=== PATIENT | male | born 1950 | race Caucasian/White ===

== ENCOUNTER 2016-10-04 15:00 | Inpatient (IN) | payer SELFPAY ==
[~2016-10-04] VITALS: Ht 167.6 cm; Wt 69.0 kg
[~2016-10-04 15:00] MED LIST: CYCL10 PO; DSS100 PO; HYDR-309 PO; HYDR50 PO; METO100T5 PO; NIFE90TA38 PO; PANT40TA25 PO
[2016-10-04 16:13] LABS: BASOPHILS % (AUTO) 0.6 % (0.0-2.0); HEMATOCRIT 39.9 % (41-53); HEMOGLOBIN 12.9 g/dL (13.5-17.5); LYMPHOCYTES # (AUTO) 1.7 K/uL (1.0-4.8); LYMPHOCYTES % (AUTO) 22.4 % (22.0-44.0); MEAN CORPUSCULAR HEMOGLOBIN 28.3 pg (26.0-34.0); MEAN CORPUSCULAR HGB CONC 32.4 G/dL (31.0-37.0); MEAN CORPUSCULAR VOLUME 87 fL (80-100); MONOCYTES # (AUTO) 0.8 K/uL (0.1-1.0); MONOCYTES % (AUTO) 10.2 % (2.0-9.0); NEUTROPHILS # (AUTO) 4.8 K/uL (1.8-7.7); NEUTROPHILS % (AUTO) 64.8 % (40.0-70.0); PLATELET COUNT (AUTO) 257 K/uL (150-450); RED BLOOD CELL COUNT(AUTO) 4.57 MIL/uL (4.50-5.90); RED CELL DISTRIBUTION WIDTH 15.9 % (11.5-14.5); WHITE BLOOD COUNT (AUTO) 7.4 K/uL (4.5-11.0)
[2016-10-04 16:21] LABS: INR 1.1 (0.9-1.1); PROTHROMBIN TIME 11.1 SEC (9.4-11.6)
[2016-10-04 16:24] LABS: ANION GAP 8 mmol/L (8-16); CALCIUM, TOTAL 8.4 mg/dL (8.8-10.5); CARBON DIOXIDE 26 mmol/L (22-29); CHLORIDE 106 mmol/L (98-107); CREATININE 1.47 mg/dL (0.60-1.30); GLOMERULAR FILTR. RATE CALC 48 mL/min (>60); POTASSIUM 3.8 mmol/L (3.5-5.1); SODIUM SERUM 140 mmol/L (136-145); UREA NITROGEN, BLOOD 12 mg/dL (7-18)
[2016-10-04 16:34] LABS: ALANINE AMINOTRANSFERASE 13 U/L (12-78); ALBUMIN 3.1 g/dL (3.4-5.0); ASPARTATE AMINOTRANSFERASE 13 U/L (15-37); BILIRUBIN,TOTAL 0.4 mg/dL (0.1-1.0); TOTAL PROTEIN, SERUM 7.4 g/dL (6.4-8.2)
[2016-10-04] MEDS ORDERED: MECLIZINE HCL 25 MG TABLET PO ONE (17:30)
[2016-10-04] MEDS ORDERED: ASPIRIN 81 MG CHEWABLE TABLET PO ONE (17:30)
[2016-10-04] MEDS ORDERED: GADOBUTROL 1 MMOL/ML 10 ML VIAL IVP ONE (17:40)
[2016-10-04 18:08] LABS: ERYTHROCYTE SEDIMENTATION RATE 37 MM/HR (0-15)
[2016-10-04] MEDS ORDERED: NITROGLYCERIN 2% (1 GM=INCH) PACKET TP ONE (18:15)
[2016-10-04] MEDS ORDERED: ONDANSETRON HCL 4 MG/2 ML VIAL IVP ONE (18:15)
[2016-10-04] MEDS: HydrALAZINE HCL 20 MG/ML VIAL IVP ONE ×2 (19:52→20:01)
[2016-10-04 20:51] VITALS: BP 164/72
[2016-10-04] MEDS ORDERED: HYDROCODONE/ACETAMINOPHEN 5-325 MG TABLET PO PRN (23:15)
[2016-10-04 23:50] VITALS: BP 150/80
[2016-10-04 23:54] VITALS: BP 149/80
[2016-10-05] VITALS (7 sets, daily range): BP systolic 100–178; BP diastolic 63–91
[2016-10-05] MEDS ORDERED: HydrALAZINE HCL 50 MG TABLET PO SCH
[2016-10-05] MEDS: DiphenhydrAMINE HCL 25 MG CAPSULE PO PRN (05:46)
[2016-10-05] MEDS ORDERED: 0.9% SODIUM CHLORIDE 10 ML SYRINGE IVP PRN (07:00)
[2016-10-05] MEDS ORDERED: ONDANSETRON HCL 4 MG/2 ML VIAL IVP PRN (07:00)
[2016-10-05] MEDS ORDERED: OxyCODONE HCL/ACETAMINOPHEN 5-325 MG TABLET PO PRN ×2 (07:00)
[2016-10-05] MEDS ORDERED: MAGNESIUM HYDROXIDE SUSPENSION 30 ML UDCUP PO PRN (07:00)
[2016-10-05] MEDS ORDERED: ACETAMINOPHEN 325 MG TABLET PO PRN (07:00)
[2016-10-05] MEDS: AmLODIPine BESYLATE 5 MG TABLET PO SCH (08:21)
[2016-10-05] MEDS: ASPIRIN/DIPYRIDAMOLE ER 25/200 MG ER CAPSULE PO SCH ×2 (08:21→19:48)
[2016-10-05] MEDS: CYCLOBENZAPRINE HCL 10 MG TABLET PO SCH ×2 (08:21→19:48)
[2016-10-05] MEDS: PANTOPRAZOLE SODIUM 40 MG/VIAL IVP SCH (08:23)
[2016-10-05] MEDS: DOCUSATE SODIUM 100 MG CAPSULE PO SCH ×2 (08:23→19:48)
[2016-10-05] MEDS ORDERED: DOCUSATE SODIUM 100 MG CAPSULE PO SCH ×2 (09:00)
[2016-10-05] MEDS ORDERED: PANTOPRAZOLE SODIUM 40 MG DR TABLET PO SCH (09:00)
[2016-10-05] MEDS ORDERED: GADOBUTROL 1 MMOL/ML 10 ML VIAL IVP ONE (10:23)
[2016-10-05] MEDS: NIFEdipine 90 MG ER TABLET PO SCH (10:31)
[2016-10-05] MEDS: METOPROLOL SUCCINATE 50 MG ER TABLET PO SCH (10:40)
[2016-10-05] MEDS ORDERED: NITROGLYCERIN 0.4 MG SUBLINGUAL TABLET #25 SL PRN (11:00)
[2016-10-05] MEDS: ASPIRIN 81 MG CHEWABLE TABLET PO SCH (11:43)
[2016-10-05 12:35] LABS: HEMOGLOBIN A1C 5.8 % (4.5-6.2)
[2016-10-05 12:41] LABS: THYROID STIMULATING HORMONE 1.24 uIU/mL (0.36-3.74)
[2016-10-05] MEDS: NITROGLYCERIN 2% (1 GM=INCH) PACKET TP SCH ×3 (13:37→23:55)
[2016-10-05 18:25] LABS: CHOL/HDL RATIO 4.2 (4.2-7.3)
[2016-10-06 05:22] VITALS: BP 135/74
[2016-10-06] MEDS: NITROGLYCERIN 2% (1 GM=INCH) PACKET TP SCH ×4 (05:43→23:34)
[2016-10-06 08:06] VITALS: BP_SYST 145; BP_DIAS 145; BP_DIAS 79
[2016-10-06 08:06] LABS: EOSINOPHILS # (AUTO) 0.23 K/uL (0.00-0.70); EOSINOPHILS % (AUTO) 2.58 % (1.0-6.0); HEMATOCRIT 41.3 % (41-53); HEMOGLOBIN 13.9 g/dL (13.5-17.5); LYMPHOCYTES # (AUTO) 0.9 K/uL (1.0-4.8); LYMPHOCYTES % (AUTO) 9.9 % (22.0-44.0); MEAN CORPUSCULAR HEMOGLOBIN 28.9 pg (26.0-34.0); MEAN CORPUSCULAR HGB CONC 33.5 G/dL (31.0-37.0); MEAN CORPUSCULAR VOLUME 86 fL (80-100); MONOCYTES # (AUTO) 0.3 K/uL (0.1-1.0); MONOCYTES % (AUTO) 3.2 % (2.0-9.0); NEUTROPHILS # (AUTO) 7.4 K/uL (1.8-7.7); NEUTROPHILS % (AUTO) 84.3 % (40.0-70.0); PLATELET COUNT (AUTO) 262 K/uL (150-450); WHITE BLOOD COUNT (AUTO) 8.7 K/uL (4.5-11.0)
[2016-10-06 08:10] LABS: ALBUMIN 3.1 g/dL (3.4-5.0); BILIRUBIN,TOTAL 0.4 mg/dL (0.1-1.0); CALCIUM, TOTAL 8.7 mg/dL (8.8-10.5); CREATININE 1.87 mg/dL (0.60-1.30); MAGNESIUM 2.1 mg/dL (1.80-2.40); POTASSIUM 4.7 mmol/L (3.5-5.1); TOTAL PROTEIN, SERUM 7.6 g/dL (6.4-8.2)
[2016-10-06] MEDS: DOCUSATE SODIUM 100 MG CAPSULE PO SCH ×3 (09:00→20:49)
[2016-10-06] MEDS: PANTOPRAZOLE SODIUM 40 MG/VIAL IVP SCH (09:10)
[2016-10-06] MEDS: ASPIRIN/DIPYRIDAMOLE ER 25/200 MG ER CAPSULE PO SCH ×2 (09:10→20:49)
[2016-10-06] MEDS: ASPIRIN 81 MG CHEWABLE TABLET PO SCH (09:12)
[2016-10-06] MEDS: NIFEdipine 90 MG ER TABLET PO SCH (09:12)
[2016-10-06] MEDS: AmLODIPine BESYLATE 5 MG TABLET PO SCH (09:12)
[2016-10-06] MEDS: CYCLOBENZAPRINE HCL 10 MG TABLET PO SCH ×2 (09:12→20:49)
[2016-10-06] MEDS: METOPROLOL SUCCINATE 50 MG ER TABLET PO SCH (09:13)
[2016-10-06 11:10] VITALS: BP 136/77
[2016-10-06] MEDS ORDERED: SODIUM CHLORIDE 0.9% 250 ML IV ONE (12:15)
[2016-10-06 16:18] VITALS: BP 132/79
[2016-10-06 19:55] VITALS: BP 124/80
[2016-10-06 23:03] VITALS: BP 137/81
[2016-10-06] MEDS: DiphenhydrAMINE HCL 25 MG CAPSULE PO PRN (23:34)
[2016-10-07 04:33] VITALS: BP 156/84
[2016-10-07] MEDS: NITROGLYCERIN 2% (1 GM=INCH) PACKET TP SCH ×2 (05:44→12:10)
[2016-10-07] MEDS: PANTOPRAZOLE SODIUM 40 MG/VIAL IVP SCH (07:45)
[2016-10-07] MEDS: DOCUSATE SODIUM 100 MG CAPSULE PO SCH (07:45)
[2016-10-07] MEDS: METOPROLOL SUCCINATE 50 MG ER TABLET PO SCH (08:27)
[2016-10-07] MEDS: CYCLOBENZAPRINE HCL 10 MG TABLET PO SCH (08:28)
[2016-10-07 08:32] VITALS: BP 125/93
[2016-10-07] MEDS ORDERED: CLOPIDOGREL BISULFATE 75 MG TABLET PO SCH (09:00)
[2016-10-07] MEDS ORDERED: ASPIRIN 81 MG CHEWABLE TABLET PO SCH (09:00)
[2016-10-07] MEDS: AmLODIPine BESYLATE 5 MG TABLET PO SCH (11:29)
[2016-10-07 11:54] VITALS: BP 133/77
[2016-10-07] MEDS: NIFEdipine 90 MG ER TABLET PO SCH (12:10)
[2016-10-07] MEDS ORDERED: ASPI-556 PO (15:30)
[2016-10-07] MEDS ORDERED: AMLO-511 PO (15:31)
[2016-10-07] MEDS ORDERED: METO-325 PO (15:32)
[2016-10-07] MEDS ORDERED: NTP60T TP (15:33)
[2016-10-07] MEDS ORDERED: CLOP75 PO (15:34)
[2016-10-07 15:54] VITALS: BP 148/86
== END 2016-10-07 16:50 | disposition home or self-care (01) | DRG 65 ==
LOC: EMS 15:02 → 5N 20:23
PROVIDERS: ADMIT Internal Medicine; ATTEND Internal Medicine
DX: I63.9 Cerebral infarction, unspecified (principal); I42.9 Cardiomyopathy, unspecified; E44.0 Moderate protein-calorie malnutrition; I25.110 Atherosclerotic heart disease of native coronary artery with unstable angina pectoris; I69.854 Hemiplegia and hemiparesis following other cerebrovascular disease affecting left non-dominant side; I66.11 Occlusion and stenosis of right anterior cerebral artery; I12.9 Hypertensive chronic kidney disease with stage 1 through stage 4 chronic kidney disease, or unspecified chronic kidney disease; F17.210 Nicotine dependence, cigarettes, uncomplicated; D64.9 Anemia, unspecified; M19.90 Unspecified osteoarthritis, unspecified site; N18.9 Chronic kidney disease, unspecified; E78.00 Pure hypercholesterolemia, unspecified; E78.5 Hyperlipidemia, unspecified; Z88.0 Allergy status to penicillin; Z79.899 Other long term (current) drug therapy; Z98.890 Other specified postprocedural states; Z68.24 Body mass index [BMI] 24.0-24.9, adult
CPT/HCPCS: 70450; 70544; 70549; 70553; 82607; 82746; 83036; 83735; 84443; 85651; 92610; 93005; 93306; 96374; 97112; 97116; 97162; 97166; 97530; 99291; 99406; A9585; C9113; G0480; J0360; J2405; J7050

== ENCOUNTER 2016-11-03 19:00 | Inpatient (IN) | payer SELFPAY ==
[~2016-11-03] VITALS: Ht 165.1 cm; Wt 77.2 kg
[~2016-11-03 19:00] MED LIST changes: +AMLO-511 PO; +ASPI-556 PO; +CLOP75 PO; -HYDR-309 PO; -HYDR50 PO; +METO-325 PO; -METO100T5 PO; +NTP60T TP; -PANT40TA25 PO
[2016-11-03 19:19] LABS: BASOPHILS % (AUTO) 0.5 % (0.0-2.0); EOSINOPHILS % (AUTO) 5.8 % (1.0-6.0); HEMATOCRIT 43.3 % (41-53); HEMOGLOBIN 14.1 g/dL (13.5-17.5); LYMPHOCYTES # (AUTO) 2.3 K/uL (1.0-4.8); LYMPHOCYTES % (AUTO) 21.1 % (22.0-44.0); MEAN CORPUSCULAR HEMOGLOBIN 28.1 pg (26.0-34.0); MEAN CORPUSCULAR HGB CONC 32.5 G/dL (31.0-37.0); MEAN CORPUSCULAR VOLUME 87 fL (80-100); MONOCYTES # (AUTO) 1.2 K/uL (0.1-1.0); MONOCYTES % (AUTO) 11.4 % (2.0-9.0); NEUTROPHILS # (AUTO) 6.5 K/uL (1.8-7.7); NEUTROPHILS % (AUTO) 61.2 % (40.0-70.0); PLATELET COUNT (AUTO) 259 K/uL (150-450); RED CELL DISTRIBUTION WIDTH 15.3 % (11.5-14.5); WHITE BLOOD COUNT (AUTO) 10.7 K/uL (4.5-11.0)
[2016-11-03 19:24] LABS: ANION GAP 7 mmol/L (8-16); CALCIUM, TOTAL 9.2 mg/dL (8.8-10.5); CARBON DIOXIDE 27 mmol/L (22-29); CHLORIDE 106 mmol/L (98-107); CREATININE 1.71 mg/dL (0.60-1.30); GLOMERULAR FILTR. RATE CALC 40 mL/min (>60); POTASSIUM 4.2 mmol/L (3.5-5.1); SODIUM SERUM 140 mmol/L (136-145); UREA NITROGEN, BLOOD 22 mg/dL (7-18)
[2016-11-03 19:30] LABS: ALANINE AMINOTRANSFERASE 14 U/L (12-78); ALBUMIN 3.7 g/dL (3.4-5.0); ASPARTATE AMINOTRANSFERASE 13 U/L (15-37); BILIRUBIN,TOTAL 0.4 mg/dL (0.1-1.0); CREATINE KINASE, TOTAL 54 U/L (39-308); TOTAL PROTEIN, SERUM 8.7 g/dL (6.4-8.2)
[2016-11-03 19:33] LABS: PROTHROMBIN TIME 10.7 SEC (9.4-11.6)
[2016-11-03] MEDS ORDERED: ASPIRIN 81 MG CHEWABLE TABLET PO ONE (20:15)
[2016-11-03] MEDS ORDERED: SODIUM CHLORIDE 0.9% 1,000 ML IV ONE (20:45)
[2016-11-03] MEDS ORDERED: ACETAMINOPHEN 325 MG TABLET PO PRN (21:45)
[2016-11-03] MEDS ORDERED: ONDANSETRON HCL 4 MG/2 ML VIAL IVP PRN (21:45)
[2016-11-03] MEDS ORDERED: OxyCODONE HCL/ACETAMINOPHEN 5-325 MG TABLET PO PRN (21:45)
[2016-11-03] MEDS ORDERED: ZOLPIDEM TARTRATE 10 MG TABLET PO PRN (21:45)
[2016-11-03] MEDS: HEPARIN SODIUM,PORCINE 5,000 UNITS/ML VIAL SQ SCH (23:30)
[2016-11-03 23:48] LABS: APPEARANCE,URINE CLEAR (CLEAR); GLUCOSE, URINE (UA) NEGATIVE (NEGATIVE); KETONES,URINE NEGATIVE (NEGATIVE); LEUKOCYTE ESTERASE ,URINE NEGATIVE (NEGATIVE); OCCULT BLOOD,URINE SMALL (NEGATIVE); PH,URINE 6.5 (5.0-8.0); PROTEIN,URINE NEGATIVE (NEGATIVE)
[2016-11-03 23:49] LABS: ADD UA MICROSCOPIC YES
[2016-11-04 00:59] LABS: SQUAMOUS EPITHELIAL CELL,UR Few /LPF (None Seen); WBC,URINE 0-2 /HPF (0-5)
[2016-11-04] MEDS: HEPARIN SODIUM,PORCINE 5,000 UNITS/ML VIAL SQ SCH ×2 (08:48→16:02)
[2016-11-04] MEDS: PANTOPRAZOLE SODIUM 40 MG DR TABLET PO SCH (08:49)
[2016-11-04] MEDS: DOCUSATE SODIUM 100 MG CAPSULE PO SCH ×4 (09:00→23:23)
[2016-11-04] MEDS ORDERED: METOPROLOL SUCCINATE 50 MG ER TABLET PO SCH (09:00)
[2016-11-04] MEDS: NIFEdipine 90 MG ER TABLET PO SCH (09:20)
[2016-11-04] MEDS: ASPIRIN 81 MG EC TABLET PO SCH (09:20)
[2016-11-04] MEDS: CYCLOBENZAPRINE HCL 10 MG TABLET PO SCH ×2 (09:21→23:22)
[2016-11-04] MEDS: AmLODIPine BESYLATE 5 MG TABLET PO SCH (09:21)
[2016-11-04] MEDS: CLOPIDOGREL BISULFATE 75 MG TABLET PO SCH (09:21)
[2016-11-04 17:15] VITALS: BP 140/77
[2016-11-04 19:38] VITALS: BP 135/72
[2016-11-04 23:42] VITALS: BP 145/87
[2016-11-05] MEDS: HEPARIN SODIUM,PORCINE 5,000 UNITS/ML VIAL SQ SCH ×3 (00:07→16:54)
[2016-11-05 04:46] VITALS: BP 137/88
[2016-11-05 07:49] VITALS: BP 143/93
[2016-11-05] MEDS: DOCUSATE SODIUM 100 MG CAPSULE PO SCH ×2 (09:33→21:00)
[2016-11-05] MEDS: ASPIRIN 81 MG EC TABLET PO SCH (09:33)
[2016-11-05] MEDS: PANTOPRAZOLE SODIUM 40 MG DR TABLET PO SCH (09:33)
[2016-11-05] MEDS: CYCLOBENZAPRINE HCL 10 MG TABLET PO SCH ×2 (09:34→21:00)
[2016-11-05] MEDS: AmLODIPine BESYLATE 5 MG TABLET PO SCH (09:34)
[2016-11-05] MEDS: CLOPIDOGREL BISULFATE 75 MG TABLET PO SCH (09:34)
[2016-11-05] MEDS: NIFEdipine 90 MG ER TABLET PO SCH (09:34)
[2016-11-05] MEDS: METOPROLOL SUCCINATE 25 MG ER TABLET PO SCH (09:34)
[2016-11-05 11:41] VITALS: BP 124/85
[2016-11-05 15:44] VITALS: BP 138/86
[2016-11-05 19:36] VITALS: BP 129/76
[2016-11-05 23:56] VITALS: BP 113/80
[2016-11-06] MEDS: HEPARIN SODIUM,PORCINE 5,000 UNITS/ML VIAL SQ SCH ×2 (00:29→08:15)
[2016-11-06 05:03] VITALS: BP 147/88
[2016-11-06 07:39] VITALS: BP 153/93
[2016-11-06] MEDS: ASPIRIN 81 MG EC TABLET PO SCH (08:16)
[2016-11-06] MEDS: PANTOPRAZOLE SODIUM 40 MG DR TABLET PO SCH (08:16)
[2016-11-06] MEDS: AmLODIPine BESYLATE 5 MG TABLET PO SCH (08:16)
[2016-11-06] MEDS: METOPROLOL SUCCINATE 25 MG ER TABLET PO SCH (08:16)
[2016-11-06] MEDS: NIFEdipine 90 MG ER TABLET PO SCH (08:16)
[2016-11-06] MEDS: DOCUSATE SODIUM 100 MG CAPSULE PO SCH (08:17)
[2016-11-06] MEDS: CLOPIDOGREL BISULFATE 75 MG TABLET PO SCH (08:17)
[2016-11-06] MEDS: CYCLOBENZAPRINE HCL 10 MG TABLET PO SCH (08:17)
[2016-11-06] MEDS ORDERED: METO-323 PO (10:40)
[2016-11-06 11:43] VITALS: BP 123/63
== END 2016-11-06 14:55 | disposition home or self-care (01) | DRG 69 ==
LOC: EMS 19:01 → 5S 11-04 16:13
PROVIDERS: ADMIT Hospitalist; ATTEND Hospitalist
DX: G45.9 Transient cerebral ischemic attack, unspecified (principal); I13.0 Hypertensive heart and chronic kidney disease with heart failure and stage 1 through stage 4 chronic kidney disease, or unspecified chronic kidney disease; I42.9 Cardiomyopathy, unspecified; I50.32 Chronic diastolic (congestive) heart failure; E78.5 Hyperlipidemia, unspecified; R00.1 Bradycardia, unspecified; N18.9 Chronic kidney disease, unspecified; I65.29 Occlusion and stenosis of unspecified carotid artery; F17.210 Nicotine dependence, cigarettes, uncomplicated; E78.00 Pure hypercholesterolemia, unspecified; M19.90 Unspecified osteoarthritis, unspecified site; Z88.0 Allergy status to penicillin; Z79.02 Long term (current) use of antithrombotics/antiplatelets; Z79.82 Long term (current) use of aspirin; Z79.899 Other long term (current) drug therapy; Z86.73 Personal history of transient ischemic attack (TIA), and cerebral infarction without residual deficits
CPT/HCPCS: 70496; 70551; 87081; 93005; 96360; 96361; 97162; 99285; J1644; J2405; J7030

== ENCOUNTER 2017-10-31 07:10 | Emergency (ER) | payer SELFPAY ==
[~2017-10-31] VITALS: Ht 167.6 cm; Wt 81.8 kg
[~2017-10-31 07:10] MED LIST changes: -DSS100 PO; -METO-325 PO; +METO25XL PO
[2017-10-31] MEDS ORDERED: AmLODIPine BESYLATE 5 MG TABLET PO ONE (08:00)
[2017-10-31] MEDS ORDERED: NITROGLYCERIN 2% (1 GM=INCH) PACKET TP ONE (08:00)
[2017-10-31] MEDS ORDERED: KETOROLAC TROMETHAMINE 30 MG/ML VIAL IVP ONE (08:00)
[2017-10-31] MEDS ORDERED: METOPROLOL TARTRATE 5 MG/5 ML VIAL IVP ONE (08:00)
[2017-10-31] MEDS ORDERED: METOPROLOL TARTRATE 50 MG TABLET PO ONE (08:00)
[2017-10-31 09:06] LABS: BASOPHILS % (AUTO) 0.6 % (0.0-2.0); HEMATOCRIT 39.7 % (41-53); HEMOGLOBIN 13.3 g/dL (13.5-17.5); LYMPHOCYTES # (AUTO) 0.9 K/uL (1.0-4.8); LYMPHOCYTES % (AUTO) 6.9 % (22.0-44.0); MEAN CORPUSCULAR HEMOGLOBIN 28.3 pg (26.0-34.0); MEAN CORPUSCULAR HGB CONC 33.5 G/dL (31.0-37.0); MEAN CORPUSCULAR VOLUME 85 fL (80-100); MONOCYTES # (AUTO) 0.9 K/uL (0.1-1.0); MONOCYTES % (AUTO) 6.9 % (2.0-9.0); NEUTROPHILS # (AUTO) 10.9 K/uL (1.8-7.7); NEUTROPHILS % (AUTO) 84.6 % (40.0-70.0); PLATELET COUNT (AUTO) 272 K/uL (150-450); RED BLOOD CELL COUNT(AUTO) 4.71 MIL/uL (4.50-5.90)
[2017-10-31 09:23] LABS: CREATININE 1.24 mg/dL (0.60-1.30); POTASSIUM 4.3 mmol/L (3.5-5.1)
[2017-10-31 09:29] LABS: ALBUMIN 3.4 g/dL (3.4-5.0); BILIRUBIN,TOTAL 0.5 mg/dL (0.1-1.0); C-REACTIVE PROTEIN QUANT 7.54 mg/dL (0.00-0.30)
[2017-10-31] MEDS ORDERED: DEXAMETHASONE SOD PHOS 4 MG/ML 5 ML VIAL IM ONE (10:45)
[2017-10-31] MEDS ORDERED: TraMADol HCL 50 MG TABLET PO ONE (10:45)
[2017-10-31] MEDS ORDERED: DEXAMETHASONE SOD PHOS 4 MG/ML 5 ML VIAL IVP ONE (11:15)
[2017-10-31 11:55] VITALS: BP 159/98
[2017-10-31 13:08] LABS: URIC ACID 6.8 mg/dL (2.6-7.2)
== END 2017-10-31 12:40 | disposition home or self-care (01) ==
LOC: EMS 07:11
DX: M19.021 Primary osteoarthritis, right elbow (principal); M25.462 Effusion, left knee; I10 Essential (primary) hypertension; E78.00 Pure hypercholesterolemia, unspecified; F17.210 Nicotine dependence, cigarettes, uncomplicated; Z88.0 Allergy status to penicillin
CPT/HCPCS: 36415; 73080; 73562; 80053; 84550; 85025; 86140; 96374; 96375; 99285; 99406; J1100; J1885; J3490

== ENCOUNTER 2018-02-05 08:51 | Emergency (ER) | payer SELFPAY ==
[~2018-02-05] VITALS: Ht 167.6 cm; Wt 54.5 kg
[~2018-02-05 08:51] MED LIST changes: -CLOP75 PO; -NIFE90TA38 PO
[2018-02-05] MEDS ORDERED: AmLODIPine BESYLATE 5 MG TABLET PO ONE (10:00)
[2018-02-05] MEDS ORDERED: KETOROLAC TROMETHAMINE 30 MG/ML VIAL IM ONE (10:00)
[2018-02-05] MEDS ORDERED: METOPROLOL SUCCINATE 25 MG ER TABLET PO ONE (10:00)
[2018-02-05] MEDS ORDERED: KETOROLAC TROMETHAMINE 30 MG/ML VIAL IVP ONE (10:45)
[2018-02-05 11:25] LABS: BASOPHILS % (AUTO) 0.6 % (0.0-2.0); HEMATOCRIT 37.8 % (41-53); HEMOGLOBIN 12.8 g/dL (13.5-17.5); LYMPHOCYTES # (AUTO) 1.1 K/uL (1.0-4.8); LYMPHOCYTES % (AUTO) 8.8 % (22.0-44.0); MEAN CORPUSCULAR HEMOGLOBIN 28.9 pg (26.0-34.0); MEAN CORPUSCULAR HGB CONC 33.8 G/dL (31.0-37.0); MEAN CORPUSCULAR VOLUME 85 fL (80-100); MONOCYTES # (AUTO) 1.3 K/uL (0.1-1.0); MONOCYTES % (AUTO) 10.3 % (2.0-9.0); NEUTROPHILS % (AUTO) 79.3 % (40.0-70.0); PLATELET COUNT (AUTO) 292 K/uL (150-450); RED BLOOD CELL COUNT(AUTO) 4.43 MIL/uL (4.50-5.90); RED CELL DISTRIBUTION WIDTH 16.3 % (11.5-14.5)
[2018-02-05 11:30] LABS: CALCIUM, TOTAL 8.5 mg/dL (8.8-10.5); CREATININE 1.69 mg/dL (0.60-1.30); POTASSIUM 4.5 mmol/L (3.5-5.1)
[2018-02-05 11:36] LABS: ALBUMIN 2.9 g/dL (3.4-5.0); BILIRUBIN,TOTAL 0.7 mg/dL (0.1-1.0); C-REACTIVE PROTEIN QUANT 15.93 mg/dL (0.00-0.30); TOTAL PROTEIN, SERUM 8.1 g/dL (6.4-8.2)
[2018-02-05 11:51] VITALS: BP 124/62
== END 2018-02-05 12:46 | disposition home or self-care (01) ==
LOC: EMS 08:53
DX: L03.113 Cellulitis of right upper limb (principal); M25.571 Pain in right ankle and joints of right foot; I10 Essential (primary) hypertension; E78.00 Pure hypercholesterolemia, unspecified; F17.210 Nicotine dependence, cigarettes, uncomplicated; Z88.0 Allergy status to penicillin
CPT/HCPCS: 36415; 73080; 73610; 73630; 80053; 85025; 86140; 96374; 99285; J1885

== ENCOUNTER 2018-05-02 13:39 | Inpatient (IN) | payer SELFPAY ==
[~2018-05-02] VITALS: Ht 165.1 cm; Wt 65.0 kg
[2018-05-02 14:25] LABS: BASOPHILS % (AUTO) 0.9 % (0.0-2.0); EOSINOPHILS % (AUTO) 6.5 % (1.0-6.0); HEMATOCRIT 40.7 % (41-53); HEMOGLOBIN 13.4 g/dL (13.5-17.5); LYMPHOCYTES # (AUTO) 1.5 K/uL (1.0-4.8); LYMPHOCYTES % (AUTO) 18.8 % (22.0-44.0); MEAN CORPUSCULAR HEMOGLOBIN 28.8 pg (26.0-34.0); MEAN CORPUSCULAR HGB CONC 32.9 G/dL (31.0-37.0); MEAN CORPUSCULAR VOLUME 87 fL (80-100); MONOCYTES # (AUTO) 0.8 K/uL (0.1-1.0); MONOCYTES % (AUTO) 9.5 % (2.0-9.0); NEUTROPHILS # (AUTO) 5.2 K/uL (1.8-7.7); NEUTROPHILS % (AUTO) 64.3 % (40.0-70.0); PLATELET COUNT (AUTO) 268 K/uL (150-450); RED BLOOD CELL COUNT(AUTO) 4.67 MIL/uL (4.50-5.90); RED CELL DISTRIBUTION WIDTH 15.4 % (11.5-14.5)
[2018-05-02 14:34] LABS: CALCIUM, TOTAL 8.9 mg/dL (8.8-10.5); CREATININE 1.43 mg/dL (0.60-1.30); POTASSIUM 4.2 mmol/L (3.5-5.1)
[2018-05-02 14:40] LABS: ALBUMIN 3.2 g/dL (3.4-5.0); BILIRUBIN,TOTAL 0.3 mg/dL (0.1-1.0)
[2018-05-02 14:43] LABS: PROTHROMBIN TIME 10.4 SEC (9.4-11.6)
[2018-05-02] MEDS ORDERED: ASPIRIN 81 MG CHEWABLE TABLET PO ONE (16:00)
[2018-05-02] MEDS ORDERED: METOPROLOL TARTRATE 5 MG/5 ML VIAL IVP ONE (16:00)
[2018-05-02] MEDS ORDERED: ASPIRIN 325 MG TABLET PO ONE (16:15)
[2018-05-02] MEDS ORDERED: METOPROLOL SUCCINATE 25 MG ER TABLET PO ONE (17:00)
[2018-05-02] MEDS ORDERED: AmLODIPine BESYLATE 5 MG TABLET PO ONE (17:00)
[2018-05-02 19:03] LABS: APPEARANCE,URINE CLEAR (CLEAR); BILIRUBIN,URINE NEGATIVE (NEGATIVE); GLUCOSE, URINE (UA) NEGATIVE (NEGATIVE); KETONES,URINE NEGATIVE (NEGATIVE); LEUKOCYTE ESTERASE ,URINE NEGATIVE (NEGATIVE); NITRATE,URINE NEGATIVE (NEGATIVE); OCCULT BLOOD,URINE NEGATIVE (NEGATIVE); PH,URINE 6.5 (5.0-8.0); PROTEIN,URINE NEGATIVE (NEGATIVE); UROBILINOGEN,URINE 0.2 mg/dL (<=1.0)
[2018-05-02] MEDS ORDERED: IPRATROPIUM BROMIDE 0.5 MG/2.5 ML NEB SOLUTION NEB PRN (19:30)
[2018-05-02] MEDS ORDERED: POTASSIUM CHLORIDE 20 MEQ ER TABLET PO PRN (19:30)
[2018-05-02] MEDS: METOPROLOL SUCCINATE 25 MG ER TABLET PO SCH (19:30)
[2018-05-02] MEDS ORDERED: MAGNESIUM SULFATE 2 GM/WATER 50 ML IV PRN (19:30)
[2018-05-02] MEDS ORDERED: 0.9% SODIUM CHLORIDE 10 ML SYRINGE IVP PRN (19:30)
[2018-05-02] MEDS ORDERED: OxyCODONE HCL/ACETAMINOPHEN 5-325 MG TABLET PO PRN (19:30)
[2018-05-02] MEDS ORDERED: MAGNESIUM SULFATE 4 GM/WATER 100 ML IV PRN (19:30)
[2018-05-02] MEDS ORDERED: ACETAMINOPHEN 325 MG TABLET PO PRN (19:30)
[2018-05-02] MEDS ORDERED: MAGNESIUM OXIDE 400 MG TABLET PO PRN (19:30)
[2018-05-02] MEDS ORDERED: POTASSIUM CHL 10 MEQ/WATER 50 ML IV PRN (19:30)
[2018-05-02] MEDS ORDERED: ZOLPIDEM TARTRATE 5 MG TABLET PO PRN (19:30)
[2018-05-02] MEDS ORDERED: ONDANSETRON HCL 4 MG/2 ML VIAL IVP PRN (19:30)
[2018-05-02] MEDS: ASPIRIN 81 MG CHEWABLE TABLET PO SCH (19:38)
[2018-05-02] MEDS: IPRATROPIUM BROMIDE 0.5 MG/2.5 ML NEB SOLUTION NEB SCH (20:00)
[2018-05-02] MEDS: ALBUTEROL SULFATE 2.5 MG/0.5 ML NEB SOLUTION NEB SCH (20:00)
[2018-05-02] MEDS ORDERED: HydrALAZINE HCL 20 MG/ML VIAL IVP PRN (20:30)
[2018-05-02 20:47] VITALS: BP 160/69
[2018-05-02] MEDS: PANTOPRAZOLE SODIUM 40 MG/VIAL IVP SCH (21:42)
[2018-05-02] MEDS: DOCUSATE SODIUM 100 MG CAPSULE PO SCH (21:42)
[2018-05-02] MEDS: CYCLOBENZAPRINE HCL 10 MG TABLET PO SCH (23:46)
[2018-05-02] MEDS: NITROGLYCERIN 2% (1 GM=INCH) PACKET TP SCH (23:46)
[2018-05-02] MEDS: HEPARIN SODIUM,PORCINE 5,000 UNITS/ML VIAL SQ SCH (23:47)
[2018-05-02] MEDS: HydrALAZINE HCL 20 MG/ML VIAL IVP SCH (23:48)
[2018-05-03 00:01] VITALS: BP 159/79
[2018-05-03] MEDS: HEPARIN SODIUM,PORCINE 5,000 UNITS/ML VIAL SQ SCH ×3 (00:01→15:29)
[2018-05-03] MEDS: IPRATROPIUM BROMIDE 0.5 MG/2.5 ML NEB SOLUTION NEB SCH ×4 (02:00→20:10)
[2018-05-03] MEDS: ALBUTEROL SULFATE 2.5 MG/0.5 ML NEB SOLUTION NEB SCH ×4 (02:00→20:10)
[2018-05-03 04:22] VITALS: BP 153/85
[2018-05-03] MEDS: HydrALAZINE HCL 20 MG/ML VIAL IVP SCH ×2 (05:06→11:46)
[2018-05-03] MEDS: NITROGLYCERIN 2% (1 GM=INCH) PACKET TP SCH ×3 (05:06→18:20)
[2018-05-03 07:07] VITALS: BP 127/84
[2018-05-03] MEDS: PANTOPRAZOLE SODIUM 40 MG/VIAL IVP SCH (08:16)
[2018-05-03] MEDS: DOCUSATE SODIUM 100 MG CAPSULE PO SCH ×2 (08:16→20:08)
[2018-05-03] MEDS: ASPIRIN 81 MG CHEWABLE TABLET PO SCH (08:16)
[2018-05-03] MEDS: AmLODIPine BESYLATE 5 MG TABLET PO SCH (08:17)
[2018-05-03] MEDS: CYCLOBENZAPRINE HCL 10 MG TABLET PO SCH ×2 (08:17→20:08)
[2018-05-03] MEDS: METOPROLOL SUCCINATE 25 MG ER TABLET PO SCH (08:17)
[2018-05-03 11:36] VITALS: BP 101/65
[2018-05-03] MEDS: ALBUTEROL SULFATE 2.5 MG/0.5 ML NEB SOLUTION NEB PRN (13:43)
[2018-05-03 15:36] VITALS: BP 116/70
[2018-05-03 19:37] VITALS: BP 118/77
[2018-05-04] VITALS (7 sets, daily range): BP systolic 98–127; BP diastolic 58–74
[2018-05-04] MEDS: HEPARIN SODIUM,PORCINE 5,000 UNITS/ML VIAL SQ SCH ×4 (00:13→23:20)
[2018-05-04] MEDS: NITROGLYCERIN 2% (1 GM=INCH) PACKET TP SCH ×5 (00:13→23:20)
[2018-05-04 06:36] LABS: BASOPHILS % (AUTO) 0.2 % (0.0-2.0); HEMATOCRIT 39.1 % (41-53); HEMOGLOBIN 13.1 g/dL (13.5-17.5); LYMPHOCYTES % (AUTO) 13.8 % (22.0-44.0); MEAN CORPUSCULAR HGB CONC 33.6 G/dL (31.0-37.0); MEAN CORPUSCULAR VOLUME 86 fL (80-100); MONOCYTES # (AUTO) 0.3 K/uL (0.1-1.0); MONOCYTES % (AUTO) 4.7 % (2.0-9.0); NEUTROPHILS % (AUTO) 71.3 % (40.0-70.0); PLATELET COUNT (AUTO) 252 K/uL (150-450); RED BLOOD CELL COUNT(AUTO) 4.53 MIL/uL (4.50-5.90); RED CELL DISTRIBUTION WIDTH 15.4 % (11.5-14.5)
[2018-05-04 06:55] LABS: CALCIUM, TOTAL 8.5 mg/dL (8.8-10.5); CREATININE 1.67 mg/dL (0.60-1.30); MAGNESIUM 2.2 mg/dL (1.80-2.40); POTASSIUM 4.3 mmol/L (3.5-5.1)
[2018-05-04] MEDS: IPRATROPIUM BROMIDE 0.5 MG/2.5 ML NEB SOLUTION NEB SCH ×3 (07:45→19:17)
[2018-05-04] MEDS: ALBUTEROL SULFATE 2.5 MG/0.5 ML NEB SOLUTION NEB SCH ×3 (07:45→19:17)
[2018-05-04] MEDS: METOPROLOL SUCCINATE 25 MG ER TABLET PO SCH (08:32)
[2018-05-04] MEDS: ASPIRIN 81 MG CHEWABLE TABLET PO SCH (08:32)
[2018-05-04] MEDS: DOCUSATE SODIUM 100 MG CAPSULE PO SCH ×2 (08:32→20:19)
[2018-05-04] MEDS: CYCLOBENZAPRINE HCL 10 MG TABLET PO SCH ×2 (08:32→20:20)
[2018-05-04] MEDS: AmLODIPine BESYLATE 5 MG TABLET PO SCH (08:32)
[2018-05-04] MEDS: PANTOPRAZOLE SODIUM 40 MG/VIAL IVP SCH (08:32)
[2018-05-04] MEDS: CefTRIAXone SODIUM 1 GM in DEXTROSE 5%-WATER 10 ML IV SCH (11:33)
[2018-05-05 00:04] VITALS: BP 139/75
[2018-05-05] MEDS: IPRATROPIUM BROMIDE 0.5 MG/2.5 ML NEB SOLUTION NEB SCH ×4 (02:05→20:07)
[2018-05-05] MEDS: ALBUTEROL SULFATE 2.5 MG/0.5 ML NEB SOLUTION NEB SCH ×4 (02:05→20:06)
[2018-05-05 05:04] VITALS: BP 98/56
[2018-05-05] MEDS: NITROGLYCERIN 2% (1 GM=INCH) PACKET TP SCH ×3 (05:45→18:00)
[2018-05-05 06:52] LABS: BASOPHILS % (AUTO) 0.1 % (0.0-2.0); EOSINOPHILS % (AUTO) 10.5 % (1.0-6.0); HEMATOCRIT 36.3 % (41-53); LYMPHOCYTES # (AUTO) 0.7 K/uL (1.0-4.8); LYMPHOCYTES % (AUTO) 9.7 % (22.0-44.0); MEAN CORPUSCULAR HEMOGLOBIN 28.9 pg (26.0-34.0); MEAN CORPUSCULAR HGB CONC 33.1 G/dL (31.0-37.0); MEAN CORPUSCULAR VOLUME 87 fL (80-100); MONOCYTES # (AUTO) 0.6 K/uL (0.1-1.0); MONOCYTES % (AUTO) 8.3 % (2.0-9.0); NEUTROPHILS # (AUTO) 5.1 K/uL (1.8-7.7); NEUTROPHILS % (AUTO) 71.4 % (40.0-70.0); PLATELET COUNT (AUTO) 230 K/uL (150-450); RED BLOOD CELL COUNT(AUTO) 4.17 MIL/uL (4.50-5.90); RED CELL DISTRIBUTION WIDTH 15.1 % (11.5-14.5)
[2018-05-05 06:55] LABS: C-REACTIVE PROTEIN QUANT 3.81 mg/dL (0.00-0.30); CALCIUM, TOTAL 8.2 mg/dL (8.8-10.5); CREATININE 1.65 mg/dL (0.60-1.30); MAGNESIUM 1.9 mg/dL (1.80-2.40); POTASSIUM 4.2 mmol/L (3.5-5.1)
[2018-05-05 07:13] VITALS: BP 111/71
[2018-05-05] MEDS: PANTOPRAZOLE SODIUM 40 MG/VIAL IVP SCH (08:14)
[2018-05-05] MEDS: HEPARIN SODIUM,PORCINE 5,000 UNITS/ML VIAL SQ SCH ×2 (08:14→16:58)
[2018-05-05] MEDS: CYCLOBENZAPRINE HCL 10 MG TABLET PO SCH ×2 (08:15→20:52)
[2018-05-05] MEDS: DOCUSATE SODIUM 100 MG CAPSULE PO SCH ×2 (08:15→20:52)
[2018-05-05] MEDS: ASPIRIN 81 MG CHEWABLE TABLET PO SCH (08:15)
[2018-05-05] MEDS: METOPROLOL SUCCINATE 25 MG ER TABLET PO SCH (08:15)
[2018-05-05 08:24] LABS: ERYTHROCYTE SEDIMENTATION RATE 40 MM/HR (0-15)
[2018-05-05] MEDS: CefTRIAXone SODIUM 1 GM in DEXTROSE 5%-WATER 10 ML IV SCH (11:00)
[2018-05-05 11:24] VITALS: BP 133/80
[2018-05-05] MEDS: AmLODIPine BESYLATE 5 MG TABLET PO SCH (11:35)
[2018-05-05 16:27] VITALS: BP 108/70
[2018-05-05 19:43] VITALS: BP 130/68
[2018-05-06] VITALS (7 sets, daily range): BP systolic 107–145; BP diastolic 55–80
[2018-05-06] MEDS: HEPARIN SODIUM,PORCINE 5,000 UNITS/ML VIAL SQ SCH ×3 (00:14→16:26)
[2018-05-06] MEDS: ALBUTEROL SULFATE 2.5 MG/0.5 ML NEB SOLUTION NEB SCH ×4 (01:49→19:49)
[2018-05-06] MEDS: IPRATROPIUM BROMIDE 0.5 MG/2.5 ML NEB SOLUTION NEB SCH ×4 (01:50→19:49)
[2018-05-06] MEDS: NITROGLYCERIN 2% (1 GM=INCH) PACKET TP SCH ×4 (06:00→17:40)
[2018-05-06 06:49] LABS: BASOPHILS % (AUTO) 0.1 % (0.0-2.0); EOSINOPHILS % (AUTO) 12.2 % (1.0-6.0); HEMATOCRIT 37.5 % (41-53); HEMOGLOBIN 12.5 g/dL (13.5-17.5); LYMPHOCYTES # (AUTO) 0.6 K/uL (1.0-4.8); LYMPHOCYTES % (AUTO) 9.5 % (22.0-44.0); MEAN CORPUSCULAR HEMOGLOBIN 28.8 pg (26.0-34.0); MEAN CORPUSCULAR HGB CONC 33.4 G/dL (31.0-37.0); MEAN CORPUSCULAR VOLUME 86 fL (80-100); MONOCYTES # (AUTO) 0.5 K/uL (0.1-1.0); MONOCYTES % (AUTO) 7.3 % (2.0-9.0); NEUTROPHILS # (AUTO) 4.8 K/uL (1.8-7.7); NEUTROPHILS % (AUTO) 70.9 % (40.0-70.0); PLATELET COUNT (AUTO) 230 K/uL (150-450); RED BLOOD CELL COUNT(AUTO) 4.35 MIL/uL (4.50-5.90); RED CELL DISTRIBUTION WIDTH 15.1 % (11.5-14.5)
[2018-05-06 06:57] LABS: CALCIUM, TOTAL 8.4 mg/dL (8.8-10.5); CREATININE 1.48 mg/dL (0.60-1.30); POTASSIUM 4.6 mmol/L (3.5-5.1)
[2018-05-06] MEDS: PANTOPRAZOLE SODIUM 40 MG/VIAL IVP SCH (08:19)
[2018-05-06] MEDS: DOCUSATE SODIUM 100 MG CAPSULE PO SCH ×2 (08:20→20:08)
[2018-05-06] MEDS: AmLODIPine BESYLATE 5 MG TABLET PO SCH (08:20)
[2018-05-06] MEDS: METOPROLOL SUCCINATE 25 MG ER TABLET PO SCH (08:20)
[2018-05-06] MEDS: ASPIRIN 81 MG CHEWABLE TABLET PO SCH (08:21)
[2018-05-06] MEDS: CYCLOBENZAPRINE HCL 10 MG TABLET PO SCH ×2 (09:58→20:09)
[2018-05-06] MEDS: CefTRIAXone SODIUM 1 GM in DEXTROSE 5%-WATER 10 ML IV SCH (11:23)
[2018-05-06] MEDS ORDERED: AMLO-512 PO (12:48)
[2018-05-06] MEDS ORDERED: ATOR20TA86 PO (12:50)
[2018-05-07] MEDS: HEPARIN SODIUM,PORCINE 5,000 UNITS/ML VIAL SQ SCH ×3 (00:40→17:23)
[2018-05-07] MEDS: IPRATROPIUM BROMIDE 0.5 MG/2.5 ML NEB SOLUTION NEB SCH ×4 (02:00→14:21)
[2018-05-07] MEDS: ALBUTEROL SULFATE 2.5 MG/0.5 ML NEB SOLUTION NEB SCH ×4 (02:00→14:21)
[2018-05-07 03:15] VITALS: BP 131/73
[2018-05-07] MEDS: NITROGLYCERIN 2% (1 GM=INCH) PACKET TP SCH ×3 (06:11→12:00)
[2018-05-07 07:33] VITALS: BP 129/73
[2018-05-07 08:40] VITALS: BP 159/81
[2018-05-07] MEDS: DOCUSATE SODIUM 100 MG CAPSULE PO SCH (09:00)
[2018-05-07] MEDS: CYCLOBENZAPRINE HCL 10 MG TABLET PO SCH (09:00)
[2018-05-07] MEDS ORDERED: REGADENOSON 0.4 MG/5 ML PF SYRINGE IVP ONE ×2 (10:07→16:29)
[2018-05-07] MEDS ORDERED: SESTAMIBI TC99M/UD ISOTOPE 1 EA INJ INJ ONE ×2 (10:10→12:10)
[2018-05-07 10:14] VITALS: BP 152/78
[2018-05-07] MEDS: ALBUTEROL SULFATE 2.5 MG/0.5 ML NEB SOLUTION NEB PRN (11:11)
[2018-05-07 11:36] VITALS: BP 148/82
[2018-05-07] MEDS: ASPIRIN 81 MG CHEWABLE TABLET PO SCH (14:35)
[2018-05-07] MEDS: PANTOPRAZOLE SODIUM 40 MG/VIAL IVP SCH (14:35)
[2018-05-07] MEDS: AmLODIPine BESYLATE 5 MG TABLET PO SCH (14:35)
[2018-05-07 15:04] VITALS: BP 140/89
[2018-05-07] MEDS: METOPROLOL SUCCINATE 25 MG ER TABLET PO SCH (17:55)
== END 2018-05-07 18:10 | disposition home or self-care (01) | DRG 313 ==
LOC: EMS 13:41 → 5S 18:42 → 5N 05-05 22:55
PROVIDERS: ADMIT Hospitalist; ATTEND Hospitalist
DX: R07.89 Other chest pain (principal); I25.10 Atherosclerotic heart disease of native coronary artery without angina pectoris; D64.9 Anemia, unspecified; E11.22 Type 2 diabetes mellitus with diabetic chronic kidney disease; E78.00 Pure hypercholesterolemia, unspecified; F17.210 Nicotine dependence, cigarettes, uncomplicated; I12.9 Hypertensive chronic kidney disease with stage 1 through stage 4 chronic kidney disease, or unspecified chronic kidney disease; J44.9 Chronic obstructive pulmonary disease, unspecified; M19.90 Unspecified osteoarthritis, unspecified site; I25.5 Ischemic cardiomyopathy; N18.3 Chronic kidney disease, stage 3 (moderate); Z86.73 Personal history of transient ischemic attack (TIA), and cerebral infarction without residual deficits; Z88.0 Allergy status to penicillin; Z79.899 Other long term (current) drug therapy
CPT/HCPCS: 78452; 83735; 85651; 86140; 93005; 93017; 93306; 94640; 96374; 99285; A9500; C9113; J0360; J0696; J1644; J2785; J3490; J7060

== ENCOUNTER 2018-07-29 09:31 | Emergency (ER) | payer SELFPAY ==
[~2018-07-29] VITALS: Ht 167.6 cm; Wt 72.7 kg
[~2018-07-29 09:31] MED LIST changes: +ATOR20TA86 PO
[2018-07-29 13:10] LABS: BASOPHILS % (AUTO) 0.9 % (0.0-2.0); HEMOGLOBIN 13.2 g/dL (13.5-17.5); LYMPHOCYTES # (AUTO) 1.1 K/uL (1.0-4.8); MEAN CORPUSCULAR HEMOGLOBIN 28.5 pg (26.0-34.0); MEAN CORPUSCULAR HGB CONC 33.8 G/dL (31.0-37.0); MEAN CORPUSCULAR VOLUME 84 fL (80-100); MONOCYTES # (AUTO) 0.7 K/uL (0.1-1.0); MONOCYTES % (AUTO) 6.9 % (2.0-9.0); NEUTROPHILS # (AUTO) 8.6 K/uL (1.8-7.7); NEUTROPHILS % (AUTO) 81.2 % (40.0-70.0); PLATELET COUNT (AUTO) 321 K/uL (150-450); RED BLOOD CELL COUNT(AUTO) 4.63 MIL/uL (4.50-5.90)
[2018-07-29] MEDS: OxyCODONE HCL/ACETAMINOPHEN 5-325 MG TABLET PO ONE (13:12)
[2018-07-29] MEDS: ONDANSETRON HCL 4 MG TABLET PO ONE (13:12)
[2018-07-29 13:20] LABS: CALCIUM, TOTAL 9.1 mg/dL (8.8-10.5); CREATININE 1.48 mg/dL (0.60-1.30); POTASSIUM 4.1 mmol/L (3.5-5.1)
[2018-07-29 13:26] LABS: ALBUMIN 3.3 g/dL (3.4-5.0); BILIRUBIN,TOTAL 0.6 mg/dL (0.1-1.0); C-REACTIVE PROTEIN QUANT 11.01 mg/dL (0.00-0.30); TOTAL PROTEIN, SERUM 8.3 g/dL (6.4-8.2)
[2018-07-29] MEDS: METOPROLOL SUCCINATE 25 MG ER TABLET PO ONE (13:38)
[2018-07-29 13:40] LABS: URIC ACID 8.4 mg/dL (2.6-7.2)
[2018-07-29] MEDS ORDERED: LIDOCAINE/PF 1% 30 ML VIAL ONE (13:59)
[2018-07-29] MEDS: IBUPROFEN 600 MG TABLET PO ONE (14:05)
[2018-07-29] MEDS: AmLODIPine BESYLATE 5 MG TABLET PO ONE (15:39)
[2018-07-29] MEDS: CloNIDine HCL 0.2 MG TABLET PO ONE (17:27)
[2018-07-29 18:28] VITALS: BP 108/61
== END 2018-07-29 18:41 | disposition home or self-care (01) ==
LOC: EMS 09:32
DX: M10.9 Gout, unspecified (principal); I10 Essential (primary) hypertension; E78.00 Pure hypercholesterolemia, unspecified; F17.210 Nicotine dependence, cigarettes, uncomplicated; Z88.0 Allergy status to penicillin; Z79.82 Long term (current) use of aspirin
CPT/HCPCS: 36415; 73610; 80053; 84550; 85025; 86140; 99291; Q0162; J3490

== ENCOUNTER 2018-09-05 11:11 | Inpatient (IN) | payer SELFPAY ==
[~2018-09-05] VITALS: Ht 160 cm; Wt 63.9 kg
[2018-09-05 11:59] LABS: BASOPHILS % (AUTO) 0.5 % (0.0-2.0); HEMATOCRIT 42.1 % (41-53); HEMOGLOBIN 13.7 g/dL (13.5-17.5); LYMPHOCYTES # (AUTO) 0.9 K/uL (1.0-4.8); LYMPHOCYTES % (AUTO) 12.7 % (22.0-44.0); MEAN CORPUSCULAR HEMOGLOBIN 27.7 pg (26.0-34.0); MEAN CORPUSCULAR HGB CONC 32.6 G/dL (31.0-37.0); MEAN CORPUSCULAR VOLUME 85 fL (80-100); MONOCYTES # (AUTO) 0.7 K/uL (0.1-1.0); MONOCYTES % (AUTO) 9.7 % (2.0-9.0); NEUTROPHILS # (AUTO) 5.3 K/uL (1.8-7.7); NEUTROPHILS % (AUTO) 73.1 % (40.0-70.0); PLATELET COUNT (AUTO) 223 K/uL (150-450); RED BLOOD CELL COUNT(AUTO) 4.96 MIL/uL (4.50-5.90); RED CELL DISTRIBUTION WIDTH 16.8 % (11.5-14.5)
[2018-09-05 12:16] LABS: CALCIUM, TOTAL 8.8 mg/dL (8.8-10.5); CREATININE 1.28 mg/dL (0.60-1.30); POTASSIUM 3.9 mmol/L (3.5-5.1)
[2018-09-05 12:21] LABS: ALBUMIN 3.3 g/dL (3.4-5.0); BILIRUBIN,TOTAL 0.4 mg/dL (0.1-1.0); TOTAL PROTEIN, SERUM 7.6 g/dL (6.4-8.2)
[2018-09-05] MEDS ORDERED: ONDANSETRON HCL 4 MG/2 ML VIAL IVP PRN ×2 (13:15→20:15)
[2018-09-05] MEDS ORDERED: ACETAMINOPHEN 325 MG TABLET PO PRN ×2 (13:15→20:15)
[2018-09-05 20:15] VITALS: BP 163/95
[2018-09-05] MEDS ORDERED: ZOLPIDEM TARTRATE 5 MG TABLET PO PRN (20:15)
[2018-09-05] MEDS ORDERED: 0.9% SODIUM CHLORIDE 10 ML SYRINGE IVP PRN (20:15)
[2018-09-05] MEDS: ASPIRIN 81 MG EC TABLET PO SCH (20:15)
[2018-09-05] MEDS ORDERED: ATORVASTATIN CALCIUM 20 MG TABLET PO SCH (21:00)
[2018-09-05] MEDS: CYCLOBENZAPRINE HCL 10 MG TABLET PO SCH (21:43)
[2018-09-05] MEDS: AmLODIPine BESYLATE 5 MG TABLET PO SCH (21:43)
[2018-09-05] MEDS: NITROGLYCERIN 2% (1 GM=INCH) PACKET TP SCH (21:43)
[2018-09-05] MEDS: ENOXAPARIN SODIUM 40 MG/0.4 ML PF SYRINGE SQ SCH (21:43)
[2018-09-05] MEDS: PANTOPRAZOLE SODIUM 40 MG/VIAL IVP SCH (21:43)
[2018-09-06] VITALS (7 sets, daily range): BP systolic 105–164; BP diastolic 62–95
[2018-09-06] MEDS: NITROGLYCERIN 2% (1 GM=INCH) PACKET TP SCH ×4 (02:08→20:51)
[2018-09-06 07:58] LABS: BASOPHILS % (AUTO) 0.5 % (0.0-2.0); CREATININE 1.22 mg/dL (0.60-1.30); EOSINOPHILS % (AUTO) 4.1 % (1.0-6.0); HEMATOCRIT 41.4 % (41-53); HEMOGLOBIN 13.8 g/dL (13.5-17.5); LYMPHOCYTES # (AUTO) 0.8 K/uL (1.0-4.8); LYMPHOCYTES % (AUTO) 12.9 % (22.0-44.0); MAGNESIUM 1.9 mg/dL (1.80-2.40); MEAN CORPUSCULAR HEMOGLOBIN 27.9 pg (26.0-34.0); MEAN CORPUSCULAR HGB CONC 33.3 G/dL (31.0-37.0); MEAN CORPUSCULAR VOLUME 84 fL (80-100); MONOCYTES # (AUTO) 0.7 K/uL (0.1-1.0); MONOCYTES % (AUTO) 10.1 % (2.0-9.0); NEUTROPHILS # (AUTO) 4.7 K/uL (1.8-7.7); NEUTROPHILS % (AUTO) 72.4 % (40.0-70.0); PLATELET COUNT (AUTO) 219 K/uL (150-450); POTASSIUM 3.7 mmol/L (3.5-5.1); RED BLOOD CELL COUNT(AUTO) 4.94 MIL/uL (4.50-5.90)
[2018-09-06] MEDS: CYCLOBENZAPRINE HCL 10 MG TABLET PO SCH ×2 (08:45→20:51)
[2018-09-06] MEDS: PANTOPRAZOLE SODIUM 40 MG/VIAL IVP SCH (08:45)
[2018-09-06] MEDS: ENOXAPARIN SODIUM 40 MG/0.4 ML PF SYRINGE SQ SCH (08:45)
[2018-09-06] MEDS: ASPIRIN 81 MG EC TABLET PO SCH (08:46)
[2018-09-06] MEDS: AmLODIPine BESYLATE 5 MG TABLET PO SCH (08:47)
[2018-09-06] MEDS ORDERED: METOPROLOL SUCCINATE 25 MG ER TABLET PO SCH (09:00)
[2018-09-06] MEDS: METOPROLOL SUCCINATE 25 MG ER TABLET PO SCH (20:52)
[2018-09-06] MEDS ORDERED: ATORVASTATIN CALCIUM 40 MG TABLET PO SCH (21:00)
[2018-09-07] MEDS: NITROGLYCERIN 2% (1 GM=INCH) PACKET TP SCH ×2 (02:06→08:23)
[2018-09-07 05:24] VITALS: BP 141/81
[2018-09-07 07:25] VITALS: BP 145/72
[2018-09-07 07:39] LABS: BASOPHILS % (AUTO) 0.2 % (0.0-2.0); EOSINOPHILS % (AUTO) 6.1 % (1.0-6.0); HEMATOCRIT 42.5 % (41-53); HEMOGLOBIN 13.9 g/dL (13.5-17.5); LYMPHOCYTES # (AUTO) 0.7 K/uL (1.0-4.8); LYMPHOCYTES % (AUTO) 11.4 % (22.0-44.0); MEAN CORPUSCULAR HEMOGLOBIN 27.8 pg (26.0-34.0); MEAN CORPUSCULAR HGB CONC 32.7 G/dL (31.0-37.0); MEAN CORPUSCULAR VOLUME 85 fL (80-100); MONOCYTES # (AUTO) 0.7 K/uL (0.1-1.0); MONOCYTES % (AUTO) 10.4 % (2.0-9.0); NEUTROPHILS # (AUTO) 4.7 K/uL (1.8-7.7); NEUTROPHILS % (AUTO) 71.9 % (40.0-70.0); PLATELET COUNT (AUTO) 220 K/uL (150-450); RED BLOOD CELL COUNT(AUTO) 4.99 MIL/uL (4.50-5.90); RED CELL DISTRIBUTION WIDTH 17.3 % (11.5-14.5)
[2018-09-07 07:55] LABS: BILIRUBIN,TOTAL 0.2 mg/dL (0.1-1.0); CALCIUM, TOTAL 8.5 mg/dL (8.8-10.5); CREATININE 1.4 mg/dL (0.60-1.30); POTASSIUM 4.4 mmol/L (3.5-5.1); TOTAL PROTEIN, SERUM 6.6 g/dL (6.4-8.2)
[2018-09-07] MEDS: PANTOPRAZOLE SODIUM 40 MG/VIAL IVP SCH (08:22)
[2018-09-07] MEDS: AmLODIPine BESYLATE 5 MG TABLET PO SCH (08:23)
[2018-09-07] MEDS: ASPIRIN 81 MG EC TABLET PO SCH (08:26)
[2018-09-07] MEDS: CYCLOBENZAPRINE HCL 10 MG TABLET PO SCH (08:27)
[2018-09-07] MEDS: METOPROLOL SUCCINATE 25 MG ER TABLET PO SCH (08:27)
[2018-09-07] MEDS: ENOXAPARIN SODIUM 40 MG/0.4 ML PF SYRINGE SQ SCH (08:28)
[2018-09-07 11:17] VITALS: BP 133/77
== END 2018-09-07 15:25 | disposition home or self-care (01) | DRG 311 ==
LOC: EMS 11:13 → 5N 16:59 → 5S 18:38
PROVIDERS: ADMIT Hospitalist; ATTEND Hospitalist
DX: I20.8 Other forms of angina pectoris (principal); I42.9 Cardiomyopathy, unspecified; D64.9 Anemia, unspecified; M19.90 Unspecified osteoarthritis, unspecified site; I10 Essential (primary) hypertension; E78.00 Pure hypercholesterolemia, unspecified; F12.90 Cannabis use, unspecified, uncomplicated; I12.9 Hypertensive chronic kidney disease with stage 1 through stage 4 chronic kidney disease, or unspecified chronic kidney disease; I13.10 Hypertensive heart and chronic kidney disease without heart failure, with stage 1 through stage 4 chronic kidney disease, or unspecified chronic kidney disease; N18.9 Chronic kidney disease, unspecified; J44.9 Chronic obstructive pulmonary disease, unspecified; Z86.73 Personal history of transient ischemic attack (TIA), and cerebral infarction without residual deficits; Z87.891 Personal history of nicotine dependence; Z88.0 Allergy status to penicillin
CPT/HCPCS: 83735; 93005; 93306; 96372; 96374; C9113; G0378; J1650

== ENCOUNTER 2019-01-16 17:28 | Emergency (ER) | payer SELFPAY ==
[~2019-01-16] VITALS: Ht 167.6 cm; Wt 77.3 kg
[2019-01-16 18:39] LABS: BASOPHILS % (AUTO) 0.8 % (0.0-2.0); EOSINOPHILS % (AUTO) 3.3 % (1.0-6.0); HEMATOCRIT 41.5 % (41-53); HEMOGLOBIN 13.5 g/dL (13.5-17.5); LYMPHOCYTES # (AUTO) 1.5 K/uL (1.0-4.8); LYMPHOCYTES % (AUTO) 17.7 % (22.0-44.0); MEAN CORPUSCULAR HEMOGLOBIN 27.7 pg (26.0-34.0); MEAN CORPUSCULAR HGB CONC 32.5 G/dL (31.0-37.0); MEAN CORPUSCULAR VOLUME 85 fL (80-100); MONOCYTES # (AUTO) 0.7 K/uL (0.1-1.0); MONOCYTES % (AUTO) 8.1 % (2.0-9.0); NEUTROPHILS % (AUTO) 70.1 % (40.0-70.0); PLATELET COUNT (AUTO) 241 K/uL (150-450); RED BLOOD CELL COUNT(AUTO) 4.88 MIL/uL (4.50-5.90); RED CELL DISTRIBUTION WIDTH 16.2 % (11.5-14.5)
[2019-01-16 19:16] LABS: CALCIUM, TOTAL 8.6 mg/dL (8.8-10.5); CREATININE 1.48 mg/dL (0.60-1.30); POTASSIUM 4.1 mmol/L (3.5-5.1)
[2019-01-16 19:22] LABS: ALBUMIN 3.2 g/dL (3.4-5.0); BILIRUBIN,TOTAL 0.3 mg/dL (0.1-1.0); TOTAL PROTEIN, SERUM 7.5 g/dL (6.4-8.2)
[2019-01-16 19:45] VITALS: BP 168/94
== END 2019-01-16 19:55 | disposition home or self-care (01) ==
LOC: EMS 17:28
DX: G47.62 Sleep related leg cramps (principal); I10 Essential (primary) hypertension; F17.210 Nicotine dependence, cigarettes, uncomplicated; I11.9 Hypertensive heart disease without heart failure; E78.00 Pure hypercholesterolemia, unspecified; M19.90 Unspecified osteoarthritis, unspecified site; Z86.73 Personal history of transient ischemic attack (TIA), and cerebral infarction without residual deficits; Z79.82 Long term (current) use of aspirin; Z88.0 Allergy status to penicillin
CPT/HCPCS: 93005; 99406

== ENCOUNTER 2019-10-29 09:49 | Inpatient (IN) | payer MEDICAID ==
[~2019-10-29] VITALS: Ht 160 cm; Wt 69.9 kg
[~2019-10-29 09:49] MED LIST changes: -AMLO-511 PO; +AMLO5TAB9 PO
[2019-10-29 11:08] LABS: BASOPHILS % (AUTO) 0.5 % (0.0-2.0); EOSINOPHILS % (AUTO) 2.3 % (1.0-6.0); HEMATOCRIT 43.4 % (41-53); LYMPHOCYTES # (AUTO) 1.4 K/uL (1.0-4.8); LYMPHOCYTES % (AUTO) 11.8 % (22.0-44.0); MEAN CORPUSCULAR HGB CONC 32.4 G/dL (31.0-37.0); MEAN CORPUSCULAR VOLUME 87 fL (80-100); MONOCYTES # (AUTO) 1.2 K/uL (0.1-1.0); MONOCYTES % (AUTO) 9.9 % (2.0-9.0); NEUTROPHILS # (AUTO) 8.9 K/uL (1.8-7.7); NEUTROPHILS % (AUTO) 75.5 % (40.0-70.0); PLATELET COUNT (AUTO) 235 K/uL (150-450); RED BLOOD CELL COUNT(AUTO) 5.01 MIL/uL (4.50-5.90); RED CELL DISTRIBUTION WIDTH 14.7 % (11.5-14.5)
[2019-10-29 11:21] LABS: PROTHROMBIN TIME 10.7 SEC (9.4-11.6)
[2019-10-29 11:32] LABS: ALANINE AMINOTRANSFERASE 11 U/L (12-78); ALBUMIN 2.2 g/dL (3.4-5.0); ALKALINE PHOSPHATASE 81 U/L (46-116); ANION GAP 11 mmol/L (8-16); ASPARTATE AMINOTRANSFERASE 12 U/L (15-37); BILIRUBIN,TOTAL 0.2 mg/dL (0.1-1.0); CALCIUM, TOTAL 6.1 mg/dL (8.8-10.5); CARBON DIOXIDE 19 mmol/L (22-29); CHLORIDE 116 mmol/L (98-107); CREATINE KINASE, TOTAL ONLY 31 U/L (39-308); CREATININE 1.02 mg/dL (0.60-1.30); GLOMERULAR FILTR. RATE CALC > 60 mL/min (>60); GLUCOSE,RANDOM 66 mg/dL (70-110); SODIUM SERUM 146 mmol/L (136-145); TOTAL PROTEIN, SERUM 5.4 g/dL (6.4-8.2); UREA NITROGEN, BLOOD 18 mg/dL (7-18)
[2019-10-29 11:35] LABS: POTASSIUM 2.6 mmol/L (3.5-5.1)
[2019-10-29 11:40] LABS: B-TYPE NATRIURETIC PEPTIDE 92 pg/mL (0-100)
[2019-10-29] MEDS ORDERED: POTASSIUM CHLORIDE 20 MEQ ER TABLET PO PRN (11:45)
[2019-10-29] MEDS: CALCIUM GLUCONATE 100 MG/ML 10 ML IVP ONE ×2 (11:51→12:14)
[2019-10-29] MEDS: POTASSIUM CHL 10 MEQ/WATER 50 ML IV PRN ×2 (11:51→13:01)
[2019-10-29] MEDS ORDERED: ACETAMINOPHEN 325 MG TABLET PO PRN (12:00)
[2019-10-29] MEDS ORDERED: ONDANSETRON HCL 4 MG/2 ML VIAL IVP PRN ×2 (12:00→12:15)
[2019-10-29] MEDS ORDERED: BISACODYL 10 MG RECTAL RECTAL SUPPOSITORY PR PRN (12:15)
[2019-10-29] MEDS ORDERED: 0.9% SODIUM CHLORIDE 10 ML SYRINGE IVP PRN (12:15)
[2019-10-29] MEDS ORDERED: ALBUTEROL SULFATE 2.5 MG/0.5 ML NEB SOLUTION NEB PRN (12:15)
[2019-10-29] MEDS ORDERED: DOCUSATE SODIUM 100 MG CAPSULE PO PRN (12:15)
[2019-10-29] MEDS ORDERED: MAGNESIUM HYDROXIDE SUSPENSION 30 ML UDCUP PO PRN (12:15)
[2019-10-29] MEDS ORDERED: IPRATROPIUM BROMIDE 0.5 MG/2.5 ML NEB SOLUTION NEB PRN (12:15)
[2019-10-29 14:37] VITALS: BP 196/134
[2019-10-29] MEDS: ACETAMINOPHEN 325 MG TABLET PO PRN ×2 (14:48→20:21)
[2019-10-29 15:45] VITALS: BP 164/81
[2019-10-29 16:31] VITALS: BP 195/103
[2019-10-29] MEDS: HydrALAZINE HCL 20 MG/ML VIAL IVP PRN (16:43)
[2019-10-29] MEDS ORDERED: LISINOPRIL 5 MG TABLET PO ONE (16:45)
[2019-10-29 18:00] VITALS: BP 153/96
[2019-10-29 19:50] VITALS: BP 161/64
[2019-10-29] MEDS: LISINOPRIL 5 MG TABLET PO SCH (20:17)
[2019-10-29] MEDS: ATORVASTATIN CALCIUM 20 MG TABLET PO SCH (20:17)
[2019-10-29] MEDS: HEPARIN SODIUM,PORCINE 5,000 UNITS/ML VIAL SQ SCH (20:17)
[2019-10-30] VITALS (7 sets, daily range): BP systolic 112–147; BP diastolic 62–92
[2019-10-30 06:56] LABS: BASOPHILS % (AUTO) 0.2 % (0.0-2.0); EOSINOPHILS % (AUTO) 4.5 % (1.0-6.0); HEMATOCRIT 43.6 % (41-53); HEMOGLOBIN 14.7 g/dL (13.5-17.5); LYMPHOCYTES # (AUTO) 0.8 K/uL (1.0-4.8); LYMPHOCYTES % (AUTO) 6.9 % (22.0-44.0); MEAN CORPUSCULAR HEMOGLOBIN 28.8 pg (26.0-34.0); MEAN CORPUSCULAR HGB CONC 33.6 G/dL (31.0-37.0); MEAN CORPUSCULAR VOLUME 86 fL (80-100); MONOCYTES # (AUTO) 0.4 K/uL (0.1-1.0); NEUTROPHILS # (AUTO) 9.2 K/uL (1.8-7.7); NEUTROPHILS % (AUTO) 84.4 % (40.0-70.0); PLATELET COUNT (AUTO) 233 K/uL (150-450); RED BLOOD CELL COUNT(AUTO) 5.09 MIL/uL (4.50-5.90)
[2019-10-30 07:29] LABS: BILIRUBIN,TOTAL 0.7 mg/dL (0.1-1.0); CALCIUM, TOTAL 8.9 mg/dL (8.8-10.5); CHOL/HDL RATIO 2.4 (4.2-7.3); CREATININE 1.48 mg/dL (0.60-1.30); FREE T4 (FREE THYROXINE) 1.13 ng/dL (0.76-1.46); POTASSIUM 4.3 mmol/L (3.5-5.1); THYROID STIMULATING HORMONE 2.73 uIU/mL (0.36-3.74); TOTAL PROTEIN, SERUM 7.3 g/dL (6.4-8.2)
[2019-10-30] MEDS ORDERED: ASPIRIN 81 MG CHEWABLE TABLET PO SCH (09:00)
[2019-10-30] MEDS: ASPIRIN 81 MG CHEWABLE TABLET PO SCH (09:25)
[2019-10-30] MEDS: METOPROLOL SUCCINATE 25 MG ER TABLET PO SCH (09:25)
[2019-10-30] MEDS: AmLODIPine BESYLATE 5 MG TABLET PO SCH (09:25)
[2019-10-30] MEDS: LISINOPRIL 5 MG TABLET PO SCH ×2 (09:25→20:27)
[2019-10-30] MEDS: PANTOPRAZOLE SODIUM 40 MG DR TABLET PO SCH (09:26)
[2019-10-30] MEDS: NICOTINE 7 MG/24 HOUR PATCH TD SCH (09:26)
[2019-10-30] MEDS: HEPARIN SODIUM,PORCINE 5,000 UNITS/ML VIAL SQ SCH ×2 (09:26→20:27)
[2019-10-30] MEDS: ATORVASTATIN CALCIUM 20 MG TABLET PO SCH (20:27)
[2019-10-30] MEDS: ACETAMINOPHEN 325 MG TABLET PO PRN (20:32)
[2019-10-31 00:47] VITALS: BP 122/59
[2019-10-31 04:22] VITALS: BP 132/77
[2019-10-31 07:12] LABS: BASOPHILS % (AUTO) 0.3 % (0.0-2.0); EOSINOPHILS % (AUTO) 9.2 % (1.0-6.0); HEMATOCRIT 40.1 % (41-53); HEMOGLOBIN 13.3 g/dL (13.5-17.5); LYMPHOCYTES # (AUTO) 1.3 K/uL (1.0-4.8); LYMPHOCYTES % (AUTO) 16.9 % (22.0-44.0); MEAN CORPUSCULAR HEMOGLOBIN 28.6 pg (26.0-34.0); MEAN CORPUSCULAR HGB CONC 33.3 G/dL (31.0-37.0); MEAN CORPUSCULAR VOLUME 86 fL (80-100); MONOCYTES # (AUTO) 0.7 K/uL (0.1-1.0); MONOCYTES % (AUTO) 9.5 % (2.0-9.0); NEUTROPHILS # (AUTO) 4.9 K/uL (1.8-7.7); NEUTROPHILS % (AUTO) 64.1 % (40.0-70.0); PLATELET COUNT (AUTO) 225 K/uL (150-450); RED BLOOD CELL COUNT(AUTO) 4.67 MIL/uL (4.50-5.90); RED CELL DISTRIBUTION WIDTH 14.6 % (11.5-14.5)
[2019-10-31 07:26] LABS: ALBUMIN 2.9 g/dL (3.4-5.0); BILIRUBIN,TOTAL 0.3 mg/dL (0.1-1.0); CALCIUM, TOTAL 8.9 mg/dL (8.8-10.5); CREATININE 1.85 mg/dL (0.60-1.30); TOTAL PROTEIN, SERUM 7.2 g/dL (6.4-8.2)
[2019-10-31 08:30] VITALS: BP 139/91
[2019-10-31] MEDS: PANTOPRAZOLE SODIUM 40 MG DR TABLET PO SCH (08:50)
[2019-10-31] MEDS: AmLODIPine BESYLATE 5 MG TABLET PO SCH (08:50)
[2019-10-31] MEDS: ASPIRIN 81 MG CHEWABLE TABLET PO SCH (08:51)
[2019-10-31] MEDS: METOPROLOL SUCCINATE 25 MG ER TABLET PO SCH (08:51)
[2019-10-31] MEDS: HEPARIN SODIUM,PORCINE 5,000 UNITS/ML VIAL SQ SCH ×2 (08:51→21:36)
[2019-10-31] MEDS: LISINOPRIL 5 MG TABLET PO SCH (08:51)
[2019-10-31] MEDS: NICOTINE 7 MG/24 HOUR PATCH TD SCH (08:53)
[2019-10-31] MEDS ORDERED: SODIUM CHLORIDE 0.9% 1,000 ML IV ONE (12:30)
[2019-10-31 19:35] VITALS: BP 146/74
[2019-10-31] MEDS: ATORVASTATIN CALCIUM 20 MG TABLET PO SCH (21:36)
[2019-10-31 23:58] VITALS: BP 148/83
[2019-11-01 04:20] VITALS: BP 140/84
[2019-11-01 06:47] LABS: BASOPHILS % (AUTO) 0.4 % (0.0-2.0); EOSINOPHILS % (AUTO) 8.7 % (1.0-6.0); HEMATOCRIT 39.7 % (41-53); HEMOGLOBIN 13.1 g/dL (13.5-17.5); LYMPHOCYTES # (AUTO) 1.2 K/uL (1.0-4.8); LYMPHOCYTES % (AUTO) 13.8 % (22.0-44.0); MEAN CORPUSCULAR HEMOGLOBIN 28.7 pg (26.0-34.0); MEAN CORPUSCULAR HGB CONC 33.1 G/dL (31.0-37.0); MEAN CORPUSCULAR VOLUME 87 fL (80-100); MONOCYTES # (AUTO) 0.8 K/uL (0.1-1.0); MONOCYTES % (AUTO) 8.9 % (2.0-9.0); NEUTROPHILS # (AUTO) 5.8 K/uL (1.8-7.7); NEUTROPHILS % (AUTO) 68.2 % (40.0-70.0); PLATELET COUNT (AUTO) 222 K/uL (150-450); RED BLOOD CELL COUNT(AUTO) 4.58 MIL/uL (4.50-5.90); RED CELL DISTRIBUTION WIDTH 15.1 % (11.5-14.5)
[2019-11-01 07:15] VITALS: BP 152/77
[2019-11-01 07:22] LABS: CALCIUM, TOTAL 8.7 mg/dL (8.8-10.5); CREATININE 1.65 mg/dL (0.60-1.30); POTASSIUM 4.8 mmol/L (3.5-5.1)
[2019-11-01] MEDS: HEPARIN SODIUM,PORCINE 5,000 UNITS/ML VIAL SQ SCH ×2 (08:39→20:59)
[2019-11-01] MEDS: ASPIRIN 81 MG CHEWABLE TABLET PO SCH (08:39)
[2019-11-01] MEDS: NICOTINE 7 MG/24 HOUR PATCH TD SCH (08:40)
[2019-11-01] MEDS: PANTOPRAZOLE SODIUM 40 MG DR TABLET PO SCH (08:40)
[2019-11-01] MEDS: METOPROLOL SUCCINATE 25 MG ER TABLET PO SCH (08:40)
[2019-11-01] MEDS: AmLODIPine BESYLATE 5 MG TABLET PO SCH (08:40)
[2019-11-01 11:35] VITALS: BP 142/74
[2019-11-01 16:28] VITALS: BP 138/84
[2019-11-01 20:53] VITALS: BP 156/84
[2019-11-01] MEDS: ATORVASTATIN CALCIUM 20 MG TABLET PO SCH (20:58)
[2019-11-02 00:15] VITALS: BP 159/76
[2019-11-02 04:16] VITALS: BP 129/77
[2019-11-02] MEDS ORDERED: SODIUM CHLORIDE 0.9% 1,000 ML IV ONE (07:00)
[2019-11-02 07:12] LABS: BASOPHILS % (AUTO) 0.6 % (0.0-2.0); EOSINOPHILS % (AUTO) 7.7 % (1.0-6.0); HEMATOCRIT 39.6 % (41-53); HEMOGLOBIN 13.5 g/dL (13.5-17.5); LYMPHOCYTES # (AUTO) 1.3 K/uL (1.0-4.8); LYMPHOCYTES % (AUTO) 15.9 % (22.0-44.0); MEAN CORPUSCULAR HEMOGLOBIN 29.5 pg (26.0-34.0); MEAN CORPUSCULAR HGB CONC 34.2 G/dL (31.0-37.0); MEAN CORPUSCULAR VOLUME 86 fL (80-100); MONOCYTES # (AUTO) 0.8 K/uL (0.1-1.0); MONOCYTES % (AUTO) 10.8 % (2.0-9.0); NEUTROPHILS # (AUTO) 5.1 K/uL (1.8-7.7); PLATELET COUNT (AUTO) 238 K/uL (150-450); RED BLOOD CELL COUNT(AUTO) 4.59 MIL/uL (4.50-5.90); RED CELL DISTRIBUTION WIDTH 14.5 % (11.5-14.5)
[2019-11-02] MEDS ORDERED: IPRATROPIUM BROMIDE 0.5 MG/2.5 ML NEB SOLUTION NEB PRN (07:15)
[2019-11-02] MEDS ORDERED: ALBUTEROL SULFATE 2.5 MG/0.5 ML NEB SOLUTION NEB PRN (07:15)
[2019-11-02 07:23] LABS: CALCIUM, TOTAL 8.8 mg/dL (8.8-10.5); CREATININE 1.61 mg/dL (0.60-1.30); POTASSIUM 4.9 mmol/L (3.5-5.1)
[2019-11-02 07:40] VITALS: BP 134/76
[2019-11-02] MEDS: METOPROLOL SUCCINATE 25 MG ER TABLET PO SCH (08:07)
[2019-11-02] MEDS: AmLODIPine BESYLATE 5 MG TABLET PO SCH (08:07)
[2019-11-02] MEDS: PANTOPRAZOLE SODIUM 40 MG DR TABLET PO SCH (08:09)
[2019-11-02] MEDS: HEPARIN SODIUM,PORCINE 5,000 UNITS/ML VIAL SQ SCH ×2 (08:09→21:38)
[2019-11-02] MEDS: ASPIRIN 81 MG CHEWABLE TABLET PO SCH (08:09)
[2019-11-02] MEDS: NICOTINE 7 MG/24 HOUR PATCH TD SCH (08:09)
[2019-11-02 11:19] VITALS: BP 128/76
[2019-11-02 15:19] VITALS: BP 157/92
[2019-11-02 19:37] VITALS: BP 155/84
[2019-11-02] MEDS: ATORVASTATIN CALCIUM 20 MG TABLET PO SCH (21:38)
[2019-11-03] VITALS (7 sets, daily range): BP systolic 115–168; BP diastolic 59–89
[2019-11-03 06:42] LABS: GLUCOMETER DEV NAME(LOC) 5S.2A; GLUCOSE,POINT OF CARE 111 MG/DL (70-110)
[2019-11-03 06:53] LABS: EOSINOPHILS % (AUTO) 7.5 % (1.0-6.0); HEMATOCRIT 39.9 % (41-53); HEMOGLOBIN 13.2 g/dL (13.5-17.5); LYMPHOCYTES # (AUTO) 1.2 K/uL (1.0-4.8); MEAN CORPUSCULAR HEMOGLOBIN 28.6 pg (26.0-34.0); MEAN CORPUSCULAR HGB CONC 33.1 G/dL (31.0-37.0); MEAN CORPUSCULAR VOLUME 86 fL (80-100); MONOCYTES # (AUTO) 0.8 K/uL (0.1-1.0); MONOCYTES % (AUTO) 11.6 % (2.0-9.0); NEUTROPHILS # (AUTO) 4.5 K/uL (1.8-7.7); NEUTROPHILS % (AUTO) 62.9 % (40.0-70.0); PLATELET COUNT (AUTO) 232 K/uL (150-450); RED BLOOD CELL COUNT(AUTO) 4.63 MIL/uL (4.50-5.90); RED CELL DISTRIBUTION WIDTH 14.6 % (11.5-14.5)
[2019-11-03 07:07] LABS: CALCIUM, TOTAL 8.8 mg/dL (8.8-10.5); CREATININE 1.42 mg/dL (0.60-1.30); POTASSIUM 4.4 mmol/L (3.5-5.1)
[2019-11-03] MEDS ORDERED: SODIUM CHLORIDE 0.9% 1,000 ML IV ONE (07:15)
[2019-11-03] MEDS: AmLODIPine BESYLATE 5 MG TABLET PO SCH (08:30)
[2019-11-03] MEDS: METOPROLOL SUCCINATE 25 MG ER TABLET PO SCH (08:31)
[2019-11-03] MEDS: ASPIRIN 81 MG CHEWABLE TABLET PO SCH (08:31)
[2019-11-03] MEDS: PANTOPRAZOLE SODIUM 40 MG DR TABLET PO SCH (08:31)
[2019-11-03] MEDS: ACETAMINOPHEN 325 MG TABLET PO PRN ×2 (08:31→21:12)
[2019-11-03] MEDS: NICOTINE 7 MG/24 HOUR PATCH TD SCH (08:31)
[2019-11-03] MEDS: HEPARIN SODIUM,PORCINE 5,000 UNITS/ML VIAL SQ SCH ×2 (08:32→21:12)
[2019-11-03 12:56] LABS: URIC ACID 7.6 mg/dL (2.6-7.2)
[2019-11-03] MEDS: ATORVASTATIN CALCIUM 20 MG TABLET PO SCH (21:12)
[2019-11-04 00:15] VITALS: BP 145/82
[2019-11-04 03:18] VITALS: BP 140/77
[2019-11-04 06:02] LABS: EOSINOPHILS % (AUTO) 7.9 % (1.0-6.0); HEMATOCRIT 39.7 % (41-53); HEMOGLOBIN 13.2 g/dL (13.5-17.5); LYMPHOCYTES # (AUTO) 1.6 K/uL (1.0-4.8); MEAN CORPUSCULAR HEMOGLOBIN 28.5 pg (26.0-34.0); MEAN CORPUSCULAR HGB CONC 33.3 G/dL (31.0-37.0); MEAN CORPUSCULAR VOLUME 86 fL (80-100); NEUTROPHILS # (AUTO) 4.2 K/uL (1.8-7.7); NEUTROPHILS % (AUTO) 57.1 % (40.0-70.0); PLATELET COUNT (AUTO) 243 K/uL (150-450); RED BLOOD CELL COUNT(AUTO) 4.64 MIL/uL (4.50-5.90); RED CELL DISTRIBUTION WIDTH 14.7 % (11.5-14.5)
[2019-11-04 06:18] LABS: ALBUMIN 3.1 g/dL (3.4-5.0); BILIRUBIN,TOTAL 0.3 mg/dL (0.1-1.0); CALCIUM, TOTAL 8.9 mg/dL (8.8-10.5); CREATININE 1.57 mg/dL (0.60-1.30); POTASSIUM 4.7 mmol/L (3.5-5.1); TOTAL PROTEIN, SERUM 7.4 g/dL (6.4-8.2)
[2019-11-04 07:21] VITALS: BP 138/94
[2019-11-04] MEDS: PANTOPRAZOLE SODIUM 40 MG DR TABLET PO SCH (08:11)
[2019-11-04] MEDS: METOPROLOL SUCCINATE 25 MG ER TABLET PO SCH (08:11)
[2019-11-04] MEDS: HEPARIN SODIUM,PORCINE 5,000 UNITS/ML VIAL SQ SCH ×2 (08:12→20:00)
[2019-11-04] MEDS: AmLODIPine BESYLATE 5 MG TABLET PO SCH (08:12)
[2019-11-04] MEDS: ASPIRIN 81 MG CHEWABLE TABLET PO SCH (08:12)
[2019-11-04] MEDS: NICOTINE 7 MG/24 HOUR PATCH TD SCH (08:13)
[2019-11-04 10:58] VITALS: BP 149/92
[2019-11-04] MEDS ORDERED: PredniSONE 20 MG TABLET PO ONE (13:15)
[2019-11-04 15:47] VITALS: BP 141/95
[2019-11-04] MEDS: ATORVASTATIN CALCIUM 20 MG TABLET PO SCH (20:00)
[2019-11-04] MEDS: ACETAMINOPHEN 325 MG TABLET PO PRN (20:00)
[2019-11-04 20:18] VITALS: BP 171/107
[2019-11-04] MEDS: HydrALAZINE HCL 20 MG/ML VIAL IVP PRN (20:19)
[2019-11-05 00:41] VITALS: BP 145/96
[2019-11-05 04:25] VITALS: BP 139/83
[2019-11-05 07:21] VITALS: BP 150/105
[2019-11-05] MEDS ORDERED: PredniSONE 20 MG TABLET PO SCH (09:00)
[2019-11-05] MEDS ORDERED: ALLOPURINOL 100 MG TABLET PO SCH (09:00)
[2019-11-05] MEDS ORDERED: METOPROLOL SUCCINATE 50 MG ER TABLET PO SCH (09:00)
[2019-11-05] MEDS ORDERED: AmLODIPine BESYLATE 10 MG TABLET PO SCH (09:00)
[2019-11-05] MEDS: HEPARIN SODIUM,PORCINE 5,000 UNITS/ML VIAL SQ SCH (09:52)
[2019-11-05] MEDS: NICOTINE 7 MG/24 HOUR PATCH TD SCH (09:53)
[2019-11-05] MEDS: PANTOPRAZOLE SODIUM 40 MG DR TABLET PO SCH (09:54)
[2019-11-05] MEDS: ASPIRIN 81 MG CHEWABLE TABLET PO SCH (09:56)
[2019-11-05 10:38] VITALS: BP 134/78
[2019-11-05 15:01] VITALS: BP 168/77
[2019-11-05] MEDS ORDERED: ALLO300 PO (15:31)
[2019-11-05] MEDS ORDERED: PRED10 PO (15:40)
== END 2019-11-05 17:15 | disposition home or self-care (01) | DRG 303 ==
LOC: EMS 09:50 → 5N 12:39 → 5S 14:32
PROVIDERS: ADMIT Internal Medicine; ATTEND Internal Medicine
DX: I25.110 Atherosclerotic heart disease of native coronary artery with unstable angina pectoris (principal); R65.10 Systemic inflammatory response syndrome (SIRS) of non-infectious origin without acute organ dysfunction; I16.1 Hypertensive emergency; E87.6 Hypokalemia; E83.51 Hypocalcemia; E78.5 Hyperlipidemia, unspecified; J44.9 Chronic obstructive pulmonary disease, unspecified; M17.12 Unilateral primary osteoarthritis, left knee; E78.00 Pure hypercholesterolemia, unspecified; I10 Essential (primary) hypertension; I16.0 Hypertensive urgency; I42.9 Cardiomyopathy, unspecified; M10.9 Gout, unspecified; M19.90 Unspecified osteoarthritis, unspecified site; Z87.891 Personal history of nicotine dependence
CPT/HCPCS: 83970; 84132; 84145; 84439; 84443; 84550; 93005; 93306; 97116; 97162; 97530; 99291; J0360; J0610; J1644; J3480; J7030

== ENCOUNTER 2019-12-02 16:58 | Inpatient (IN) | payer MEDICAID ==
[~2019-12-02] VITALS: Ht 170.2 cm; Wt 72.0 kg
[~2019-12-02 16:58] MED LIST changes: +ALLO300 PO; +PRED10 PO
[2019-12-02 17:31] LABS: BASOPHILS % (AUTO) 1.1 % (0.0-2.0); EOSINOPHILS % (AUTO) 5.2 % (1.0-6.0); HEMATOCRIT 43.7 % (41-53); LYMPHOCYTES # (AUTO) 1.9 K/uL (1.0-4.8); LYMPHOCYTES % (AUTO) 21.5 % (22.0-44.0); MEAN CORPUSCULAR HEMOGLOBIN 27.6 pg (26.0-34.0); MEAN CORPUSCULAR HGB CONC 32.1 G/dL (31.0-37.0); MEAN CORPUSCULAR VOLUME 86 fL (80-100); MONOCYTES # (AUTO) 0.9 K/uL (0.1-1.0); MONOCYTES % (AUTO) 10.2 % (2.0-9.0); NEUTROPHILS # (AUTO) 5.5 K/uL (1.8-7.7); PLATELET COUNT (AUTO) 244 K/uL (150-450); RED BLOOD CELL COUNT(AUTO) 5.08 MIL/uL (4.50-5.90); RED CELL DISTRIBUTION WIDTH 14.7 % (11.5-14.5)
[2019-12-02 17:44] LABS: CALCIUM, TOTAL 8.9 mg/dL (8.8-10.5); CREATININE 1.36 mg/dL (0.60-1.30); POTASSIUM 3.9 mmol/L (3.5-5.1)
[2019-12-02 17:50] LABS: ALBUMIN 3.8 g/dL (3.4-5.0); BILIRUBIN,TOTAL 0.3 mg/dL (0.1-1.0); TOTAL PROTEIN, SERUM 8.4 g/dL (6.4-8.2)
[2019-12-02] MEDS ORDERED: METO-558 PO (18:05)
[2019-12-02] MEDS ORDERED: HYDROmorphone 2 MG/ML SYRINGE IVP ONE (18:15)
[2019-12-02] MEDS ORDERED: ONDANSETRON HCL 4 MG/2 ML VIAL IVP ONE (18:15)
[2019-12-02] MEDS ORDERED: HYDROmorphone 2 MG/ML SYRINGE IVP PRN (18:45)
[2019-12-02] MEDS ORDERED: 0.9% SODIUM CHLORIDE 10 ML SYRINGE IVP PRN (18:45)
[2019-12-02] MEDS ORDERED: ACETAMINOPHEN 325 MG TABLET PO PRN ×2 (18:45→20:15)
[2019-12-02] MEDS ORDERED: ONDANSETRON HCL 4 MG/2 ML VIAL IVP PRN ×2 (18:45→20:15)
[2019-12-02 19:23] LABS: URIC ACID 6.9 mg/dL (2.6-7.2)
[2019-12-02 20:15] VITALS: BP 197/117
[2019-12-02] MEDS ORDERED: IPRATROPIUM BROMIDE 0.5 MG/2.5 ML NEB SOLUTION NEB PRN (20:15)
[2019-12-02] MEDS ORDERED: MORPHINE SULFATE 2 MG/ML SYRINGE IVP PRN (20:15)
[2019-12-02] MEDS ORDERED: MAGNESIUM HYDROXIDE SUSPENSION 30 ML UDCUP PO PRN (20:15)
[2019-12-02] MEDS ORDERED: HYDROCODONE/ACETAMINOPHEN 5-325 MG TABLET PO PRN (20:15)
[2019-12-02] MEDS ORDERED: ZOLPIDEM TARTRATE 10 MG TABLET PO PRN (20:15)
[2019-12-02 21:50] VITALS: BP 194/89
[2019-12-02] MEDS ORDERED: METOPROLOL SUCCINATE 50 MG ER TABLET PO ONE (22:00)
[2019-12-02] MEDS ORDERED: AmLODIPine BESYLATE 2.5 MG TABLET PO ONE (22:00)
[2019-12-02] MEDS: DOCUSATE SODIUM 100 MG CAPSULE PO SCH (22:04)
[2019-12-02] MEDS: ATORVASTATIN CALCIUM 20 MG TABLET PO SCH (22:05)
[2019-12-02] MEDS: NITROGLYCERIN 2% (1 GM=INCH) PACKET TP SCH (23:33)
[2019-12-03 00:30] VITALS: BP 142/80
[2019-12-03 05:40] VITALS: BP 133/91
[2019-12-03] MEDS: NITROGLYCERIN 2% (1 GM=INCH) PACKET TP SCH ×3 (05:44→18:18)
[2019-12-03 07:33] LABS: CHOL/HDL RATIO 4.3 (4.2-7.3)
[2019-12-03 08:08] VITALS: BP 145/87
[2019-12-03] MEDS: DOCUSATE SODIUM 100 MG CAPSULE PO SCH ×2 (08:14→20:00)
[2019-12-03] MEDS: AmLODIPine BESYLATE 2.5 MG TABLET PO SCH (08:14)
[2019-12-03] MEDS: ALLOPURINOL 300 MG TABLET PO SCH (08:14)
[2019-12-03] MEDS: ASPIRIN 81 MG CHEWABLE TABLET PO SCH (08:15)
[2019-12-03] MEDS: METOPROLOL SUCCINATE 50 MG ER TABLET PO SCH (09:00)
[2019-12-03 11:20] VITALS: BP 112/67
[2019-12-03 13:25] LABS: APPEARANCE,URINE CLEAR (CLEAR); BILIRUBIN,URINE NEGATIVE (NEGATIVE); GLUCOSE, URINE (UA) NEGATIVE (NEGATIVE); KETONES,URINE NEGATIVE (NEGATIVE); LEUKOCYTE ESTERASE ,URINE NEGATIVE (NEGATIVE); NITRATE,URINE NEGATIVE (NEGATIVE); OCCULT BLOOD,URINE NEGATIVE (NEGATIVE); PH,URINE 6.5 (5.0-8.0); PROTEIN,URINE TRACE (NEGATIVE); UROBILINOGEN,URINE 0.2 mg/dL (<=1.0)
[2019-12-03 13:35] LABS: BACTERIA,URINE None Seen /HPF (None Seen); RBC,URINE None Seen /HPF (0-2); SQUAMOUS EPITHELIAL CELL,UR Few /LPF (None Seen); WBC,URINE None Seen /HPF (0-5); YEAST,URINE None Seen /HPF (None Seen)
[2019-12-03 16:05] VITALS: BP 117/71
[2019-12-03 19:34] VITALS: BP 112/75
[2019-12-03] MEDS: ATORVASTATIN CALCIUM 20 MG TABLET PO SCH (20:00)
[2019-12-04] VITALS (13 sets, daily range): BP systolic 105–186; BP diastolic 63–94
[2019-12-04] MEDS: NITROGLYCERIN 2% (1 GM=INCH) PACKET TP SCH ×3 (00:22→11:28)
[2019-12-04] MEDS: METOPROLOL SUCCINATE 50 MG ER TABLET PO SCH (08:16)
[2019-12-04] MEDS: AmLODIPine BESYLATE 2.5 MG TABLET PO SCH (08:17)
[2019-12-04] MEDS: ASPIRIN 81 MG CHEWABLE TABLET PO SCH (08:17)
[2019-12-04] MEDS: ALLOPURINOL 300 MG TABLET PO SCH (08:17)
[2019-12-04] MEDS: DOCUSATE SODIUM 100 MG CAPSULE PO SCH (08:19)
[2019-12-04] MEDS ORDERED: SODIUM BICARBONATE 150 MEQ in DEXTROSE 5%-WATER 850 ML IV ONE (08:30)
[2019-12-04] MEDS ORDERED: HEPARIN SODIUM,PORCINE 1,000 UNITS/ML 10 ML VIAL ONE (08:41)
[2019-12-04] MEDS ORDERED: VERAPAMIL HCL 2.5 MG/ML 2 ML VIAL ONE (08:41)
[2019-12-04] MEDS ORDERED: NITROGLYCERIN 50 MG/D5% WATER 250 ML ONE (08:41)
[2019-12-04] MEDS ORDERED: HEPARIN SODIUM 1000 UNITS/NS 1,000 ML ONE (08:42)
[2019-12-04] MEDS ORDERED: LIDOCAINE/PF 1% 30 ML VIAL ONE (08:42)
[2019-12-04] MEDS ORDERED: SODIUM BICARBONATE 50 MEQ/50 ML VIAL ONE (08:42)
[2019-12-04] MEDS ORDERED: IOHEXOL 300 MG/ML 150 ML VIAL ONE (08:43)
[2019-12-04] MEDS ORDERED: FentaNYL CITRATE-PF 100 MCG/2 ML VIAL ONE (09:20)
[2019-12-04] MEDS ORDERED: MIDAZOLAM HCL 2 MG/2 ML VIAL ONE (09:21)
[2019-12-04] MEDS ORDERED: IOHEXOL 300 MG/ML 100 ML VIAL ONE (09:37)
[2019-12-04] MEDS ORDERED: HEPARIN SODIUM 2,000 UNITS in HEPARIN SODIUM 1000 UNITS/NS 1,000 ML IARTER ONE (09:46)
[2019-12-04] MEDS ORDERED: SODIUM CHLORIDE 0.9% 500 ML IV ONE (09:46)
[2019-12-04] MEDS ORDERED: HEPARIN SODIUM 1000 UNITS/NS 1,000 ML IARTER ONE (09:46)
[2019-12-04] MEDS ORDERED: ISOSORBIDE MONONITRATE 60 MG ER TABLET PO SCH (10:00)
[2019-12-04] MEDS ORDERED: LIDOCAINE 1% 30 ML/SOD BICARB 8.4% 4 ML SQ ONE (10:00)
[2019-12-04] MEDS ORDERED: IOHEXOL 300 MG/ML 150 ML VIAL ICOR ONE (10:00)
[2019-12-04] MEDS ORDERED: IOHEXOL 300 MG/ML 100 ML VIAL ICOR ONE (10:00)
[2019-12-04] MEDS ORDERED: AMLO10TA7 PO (16:02)
[2019-12-04] MEDS ORDERED: ISOS60TA4 PO (16:03)
[2019-12-04] MEDS ORDERED: ATOR40TA28 PO (16:03)
[2019-12-04] MEDS ORDERED: ATORVASTATIN CALCIUM 40 MG TABLET PO SCH (21:00)
[2019-12-05] MEDS ORDERED: AmLODIPine BESYLATE 10 MG TABLET PO SCH (09:00)
== END 2019-12-04 16:20 | disposition home or self-care (01) | DRG 287 ==
LOC: EMS 16:58 → 5S 18:43
PROVIDERS: ADMIT Hospitalist; ATTEND Hospitalist
PROC: 4A023N7 Measurement of Cardiac Sampling and Pressure, Left Heart, Percutaneous Approach (ICD-10-PCS; principal; 2019-12-04)
PROC: B2111ZZ Fluoroscopy of Multiple Coronary Arteries using Low Osmolar Contrast (ICD-10-PCS; 2019-12-04)
PROC: B2151ZZ Fluoroscopy of Left Heart using Low Osmolar Contrast (ICD-10-PCS; 2019-12-04)
DX: R07.2 Precordial pain (principal); I50.30 Unspecified diastolic (congestive) heart failure; I42.9 Cardiomyopathy, unspecified; I13.0 Hypertensive heart and chronic kidney disease with heart failure and stage 1 through stage 4 chronic kidney disease, or unspecified chronic kidney disease; E78.5 Hyperlipidemia, unspecified; F17.210 Nicotine dependence, cigarettes, uncomplicated; M06.4 Inflammatory polyarthropathy; E78.00 Pure hypercholesterolemia, unspecified; M19.90 Unspecified osteoarthritis, unspecified site; J44.9 Chronic obstructive pulmonary disease, unspecified; N18.3 Chronic kidney disease, stage 3 (moderate); Z86.73 Personal history of transient ischemic attack (TIA), and cerebral infarction without residual deficits; Z88.0 Allergy status to penicillin; Z79.899 Other long term (current) drug therapy; Z79.82 Long term (current) use of aspirin
CPT/HCPCS: 70450; 84550; 87081; 93005; J1170; J1644; J2250; J2405; J3010; J3490; J7060; Q9967

== ENCOUNTER 2019-12-10 13:16 | Emergency (ER) | payer SELFPAY ==
[~2019-12-10] VITALS: Ht 162.6 cm; Wt 61.4 kg
[~2019-12-10 13:16] MED LIST changes: +AMLO10TA7 PO; -AMLO5TAB9 PO; -ATOR20TA86 PO; +ATOR40TA28 PO; +ISOS60TA4 PO; +METO-558 PO; -METO25XL PO; -NTP60T TP; -PRED10 PO
[2019-12-10 15:25] LABS: BASOPHILS % (AUTO) 0.6 % (0.0-2.0); EOSINOPHILS % (AUTO) 1.9 % (1.0-6.0); HEMATOCRIT 44.7 % (41-53); HEMOGLOBIN 14.5 g/dL (13.5-17.5); LYMPHOCYTES # (AUTO) 0.9 K/uL (1.0-4.8); LYMPHOCYTES % (AUTO) 13.2 % (22.0-44.0); MEAN CORPUSCULAR HGB CONC 32.4 G/dL (31.0-37.0); MEAN CORPUSCULAR VOLUME 86 fL (80-100); MONOCYTES # (AUTO) 1.1 K/uL (0.1-1.0); MONOCYTES % (AUTO) 17.4 % (2.0-9.0); NEUTROPHILS # (AUTO) 4.4 K/uL (1.8-7.7); NEUTROPHILS % (AUTO) 66.9 % (40.0-70.0); PLATELET COUNT (AUTO) 192 K/uL (150-450); RED BLOOD CELL COUNT(AUTO) 5.18 MIL/uL (4.50-5.90); RED CELL DISTRIBUTION WIDTH 14.7 % (11.5-14.5)
[2019-12-10 15:40] LABS: CALCIUM, TOTAL 8.6 mg/dL (8.8-10.5); CREATININE 2.34 mg/dL (0.60-1.30); POTASSIUM 4.1 mmol/L (3.5-5.1)
[2019-12-10 15:45] LABS: ALBUMIN 3.7 g/dL (3.4-5.0); BILIRUBIN,TOTAL 0.3 mg/dL (0.1-1.0); TOTAL PROTEIN, SERUM 8.1 g/dL (6.4-8.2)
[2019-12-10] MEDS ORDERED: SODIUM CHLORIDE 0.9% 1,000 ML IV ONE (15:45)
[2019-12-10 15:46] LABS: D-DIMER 2.27 mg/L FEU (0.00-0.50); PROTHROMBIN TIME 10.4 SEC (9.4-11.6)
[2019-12-10] MEDS ORDERED: PENTETATE DTPA TC99M/MCL ISOTOPE 1 EA INJ INJ ONE (18:35)
[2019-12-10] MEDS ORDERED: MAA ALBUMIN AGGREGATED TC99M/UD<10MCL ISOTOPE 1 EA INJ INJ ONE (18:50)
[2019-12-10 21:11] VITALS: BP 139/94
== END 2019-12-10 21:33 | disposition home or self-care (01) ==
LOC: EMS 13:19
DX: I13.10 Hypertensive heart and chronic kidney disease without heart failure, with stage 1 through stage 4 chronic kidney disease, or unspecified chronic kidney disease (principal); E78.00 Pure hypercholesterolemia, unspecified; F17.210 Nicotine dependence, cigarettes, uncomplicated; R07.9 Chest pain, unspecified; N18.9 Chronic kidney disease, unspecified
CPT/HCPCS: 36415; 71045; 78582; 80053; 82550; 83690; 83880; 84484; 85025; 85379; 85610; 85730; 93005; 99285; A9539; A9540; J7030

== ENCOUNTER 2019-12-17 17:00 | Inpatient (IN) | payer MEDICAID ==
[~2019-12-17] VITALS: Ht 165.1 cm; Wt 56.3 kg
[2019-12-17 17:51] LABS: BASOPHILS % (AUTO) 0.4 % (0.0-2.0); EOSINOPHILS % (AUTO) 1.8 % (1.0-6.0); HEMATOCRIT 43.4 % (41-53); LYMPHOCYTES # (AUTO) 0.9 K/uL (1.0-4.8); LYMPHOCYTES % (AUTO) 16.9 % (22.0-44.0); MEAN CORPUSCULAR HGB CONC 32.2 G/dL (31.0-37.0); MEAN CORPUSCULAR VOLUME 84 fL (80-100); MONOCYTES # (AUTO) 0.8 K/uL (0.1-1.0); MONOCYTES % (AUTO) 16.1 % (2.0-9.0); NEUTROPHILS # (AUTO) 3.4 K/uL (1.8-7.7); NEUTROPHILS % (AUTO) 64.8 % (40.0-70.0); PLATELET COUNT (AUTO) 164 K/uL (150-450); RED BLOOD CELL COUNT(AUTO) 5.17 MIL/uL (4.50-5.90); RED CELL DISTRIBUTION WIDTH 14.8 % (11.5-14.5)
[2019-12-17 18:04] LABS: PROTHROMBIN TIME 10.7 SEC (9.4-11.6)
[2019-12-17 18:07] LABS: CALCIUM, TOTAL 8.2 mg/dL (8.8-10.5); CREATININE 1.64 mg/dL (0.60-1.30); POTASSIUM 3.4 mmol/L (3.5-5.1)
[2019-12-17 18:16] LABS: BILIRUBIN,TOTAL 0.3 mg/dL (0.1-1.0); TOTAL PROTEIN, SERUM 7.4 g/dL (6.4-8.2)
[2019-12-17] MEDS ORDERED: 0.9% SODIUM CHLORIDE 10 ML SYRINGE IVP PRN (19:15)
[2019-12-17] MEDS ORDERED: ONDANSETRON HCL 4 MG/2 ML VIAL IVP PRN ×2 (19:15→21:30)
[2019-12-17] MEDS ORDERED: ACETAMINOPHEN 325 MG TABLET PO PRN ×2 (19:15→21:30)
[2019-12-17] MEDS ORDERED: HYDROCODONE/ACETAMINOPHEN 5-325 MG TABLET PO PRN (21:30)
[2019-12-17] MEDS: CYCLOBENZAPRINE HCL 10 MG TABLET PO SCH (21:30)
[2019-12-17] MEDS ORDERED: MAGNESIUM HYDROXIDE SUSPENSION 30 ML UDCUP PO PRN (21:30)
[2019-12-17] MEDS ORDERED: IPRATROPIUM BROMIDE 0.5 MG/2.5 ML NEB SOLUTION NEB PRN (21:30)
[2019-12-17] MEDS ORDERED: ZOLPIDEM TARTRATE 10 MG TABLET PO PRN (21:30)
[2019-12-17] MEDS ORDERED: MORPHINE SULFATE 2 MG/ML SYRINGE IVP PRN (21:30)
[2019-12-17 22:56] VITALS: BP 161/76
[2019-12-17] MEDS: ATORVASTATIN CALCIUM 40 MG TABLET PO SCH (23:06)
[2019-12-18] MEDS: NITROGLYCERIN 2% (1 GM=INCH) PACKET TP SCH ×4 (00:28→19:48)
[2019-12-18 03:39] LABS: BASOPHILS % (AUTO) 0.3 % (0.0-2.0); EOSINOPHILS % (AUTO) 2.3 % (1.0-6.0); HEMATOCRIT 43.3 % (41-53); HEMOGLOBIN 14.3 g/dL (13.5-17.5); LYMPHOCYTES % (AUTO) 19.2 % (22.0-44.0); MEAN CORPUSCULAR VOLUME 85 fL (80-100); MONOCYTES % (AUTO) 18.5 % (2.0-9.0); NEUTROPHILS # (AUTO) 3.1 K/uL (1.8-7.7); NEUTROPHILS % (AUTO) 59.7 % (40.0-70.0); PLATELET COUNT (AUTO) 156 K/uL (150-450); RED BLOOD CELL COUNT(AUTO) 5.11 MIL/uL (4.50-5.90); RED CELL DISTRIBUTION WIDTH 14.9 % (11.5-14.5)
[2019-12-18 03:47] LABS: ALBUMIN 3.1 g/dL (3.4-5.0); BILIRUBIN,TOTAL 0.4 mg/dL (0.1-1.0); CALCIUM, TOTAL 8.6 mg/dL (8.8-10.5); CHOL/HDL RATIO 4.9 (4.2-7.3); CREATININE 1.45 mg/dL (0.60-1.30); POTASSIUM 3.3 mmol/L (3.5-5.1); TOTAL PROTEIN, SERUM 7.7 g/dL (6.4-8.2)
[2019-12-18 05:51] VITALS: BP 111/68
[2019-12-18] MEDS: DOCUSATE SODIUM 100 MG CAPSULE PO SCH ×2 (08:28→19:50)
[2019-12-18] MEDS: ASPIRIN 81 MG CHEWABLE TABLET PO SCH (08:28)
[2019-12-18] MEDS: ALLOPURINOL 300 MG TABLET PO SCH (08:29)
[2019-12-18] MEDS: CYCLOBENZAPRINE HCL 10 MG TABLET PO SCH ×2 (08:29→21:00)
[2019-12-18] MEDS: ISOSORBIDE MONONITRATE 60 MG ER TABLET PO SCH (08:30)
[2019-12-18] MEDS: AmLODIPine BESYLATE 10 MG TABLET PO SCH (08:30)
[2019-12-18] MEDS: METOPROLOL SUCCINATE 50 MG ER TABLET PO SCH (08:30)
[2019-12-18 08:44] VITALS: BP 129/93
[2019-12-18 09:55] LABS: CHOL/HDL RATIO 5.2 (4.2-7.3)
[2019-12-18 12:00] VITALS: BP 90/60
[2019-12-18] MEDS ORDERED: POTASSIUM CHLORIDE 20 MEQ ER TABLET PO ONE (12:30)
[2019-12-18 16:39] VITALS: BP 104/68
[2019-12-18] MEDS: ATORVASTATIN CALCIUM 40 MG TABLET PO SCH (19:48)
[2019-12-18 19:50] VITALS: BP 113/68
[2019-12-18 23:44] VITALS: BP 98/66
[2019-12-19 04:00] VITALS: BP 115/69
[2019-12-19] MEDS: NITROGLYCERIN 2% (1 GM=INCH) PACKET TP SCH ×5 (06:00→23:02)
[2019-12-19 07:43] LABS: APPEARANCE,URINE CLEAR (CLEAR); BILIRUBIN,URINE NEGATIVE (NEGATIVE); GLUCOSE, URINE (UA) NEGATIVE (NEGATIVE); KETONES,URINE NEGATIVE (NEGATIVE); LEUKOCYTE ESTERASE ,URINE NEGATIVE (NEGATIVE); NITRATE,URINE NEGATIVE (NEGATIVE); OCCULT BLOOD,URINE NEGATIVE (NEGATIVE); PH,URINE 5.5 (5.0-8.0); UROBILINOGEN,URINE 0.2 mg/dL (<=1.0)
[2019-12-19 07:44] LABS: PROTEIN,URINE NEGATIVE (NEGATIVE)
[2019-12-19 10:10] VITALS: BP 131/90
[2019-12-19] MEDS: ALLOPURINOL 300 MG TABLET PO SCH (10:11)
[2019-12-19] MEDS: AmLODIPine BESYLATE 10 MG TABLET PO SCH (10:11)
[2019-12-19] MEDS: METOPROLOL SUCCINATE 50 MG ER TABLET PO SCH (10:11)
[2019-12-19] MEDS: ISOSORBIDE MONONITRATE 60 MG ER TABLET PO SCH (10:11)
[2019-12-19] MEDS: ASPIRIN 81 MG CHEWABLE TABLET PO SCH (10:11)
[2019-12-19] MEDS: DOCUSATE SODIUM 100 MG CAPSULE PO SCH ×2 (10:12→20:08)
[2019-12-19] MEDS: CYCLOBENZAPRINE HCL 10 MG TABLET PO SCH ×2 (10:12→20:09)
[2019-12-19 11:00] VITALS: BP 101/73
[2019-12-19 15:00] VITALS: BP 143/72
[2019-12-19 20:00] VITALS: BP 116/69
[2019-12-19] MEDS: ATORVASTATIN CALCIUM 40 MG TABLET PO SCH (20:09)
[2019-12-20] VITALS: BP 104/67
[2019-12-20 04:00] VITALS: BP 129/74
[2019-12-20] MEDS: NITROGLYCERIN 2% (1 GM=INCH) PACKET TP SCH ×4 (05:42→23:47)
[2019-12-20 07:46] LABS: POTASSIUM 4.1 mmol/L (3.5-5.1)
[2019-12-20 08:00] VITALS: BP 104/78
[2019-12-20] MEDS: ISOSORBIDE MONONITRATE 60 MG ER TABLET PO SCH (08:50)
[2019-12-20] MEDS: ASPIRIN 81 MG CHEWABLE TABLET PO SCH (08:50)
[2019-12-20] MEDS: CYCLOBENZAPRINE HCL 10 MG TABLET PO SCH ×2 (08:50→20:08)
[2019-12-20] MEDS: DOCUSATE SODIUM 100 MG CAPSULE PO SCH ×2 (08:50→20:08)
[2019-12-20] MEDS: ALLOPURINOL 300 MG TABLET PO SCH (08:50)
[2019-12-20] MEDS: METOPROLOL SUCCINATE 50 MG ER TABLET PO SCH (08:50)
[2019-12-20] MEDS: AmLODIPine BESYLATE 10 MG TABLET PO SCH (08:51)
[2019-12-20 12:00] VITALS: BP 111/78
[2019-12-20 17:50] VITALS: BP 141/82
[2019-12-20 20:00] VITALS: BP 126/72
[2019-12-20] MEDS: ATORVASTATIN CALCIUM 40 MG TABLET PO SCH (20:08)
[2019-12-21] VITALS: BP 99/68
[2019-12-21 04:00] VITALS: BP 124/95
[2019-12-21] MEDS: NITROGLYCERIN 2% (1 GM=INCH) PACKET TP SCH ×2 (05:30→12:07)
[2019-12-21 08:00] VITALS: BP 138/82
[2019-12-21] MEDS: DOCUSATE SODIUM 100 MG CAPSULE PO SCH (08:10)
[2019-12-21] MEDS: ISOSORBIDE MONONITRATE 60 MG ER TABLET PO SCH (08:10)
[2019-12-21] MEDS: ALLOPURINOL 300 MG TABLET PO SCH (08:10)
[2019-12-21] MEDS: METOPROLOL SUCCINATE 50 MG ER TABLET PO SCH (08:10)
[2019-12-21] MEDS: ASPIRIN 81 MG CHEWABLE TABLET PO SCH (08:11)
[2019-12-21] MEDS: AmLODIPine BESYLATE 10 MG TABLET PO SCH (08:11)
[2019-12-21] MEDS: CYCLOBENZAPRINE HCL 10 MG TABLET PO SCH (08:11)
[2019-12-21 12:08] VITALS: BP 129/69
[2019-12-21 16:20] VITALS: BP 132/77
== END 2019-12-21 16:45 | disposition home or self-care (01) | DRG 178 ==
LOC: EMS 17:03 → 5N 19:00
PROVIDERS: ADMIT Hospitalist; ATTEND Hospitalist
DX: U07.1 COVID-19 (principal); R65.10 Systemic inflammatory response syndrome (SIRS) of non-infectious origin without acute organ dysfunction; E87.6 Hypokalemia; R09.1 Pleurisy; M19.90 Unspecified osteoarthritis, unspecified site
CPT/HCPCS: 71250; 83735; 84132; 87635; 93005; J2270

== ENCOUNTER 2020-01-14 14:45 | Emergency (ER) | payer SELFPAY ==
[~2020-01-14] VITALS: Ht 162.6 cm; Wt 68.5 kg
[2020-01-14 15:21] LABS: BASOPHILS % (AUTO) 0.8 % (0.0-2.0); EOSINOPHILS % (AUTO) 6.6 % (1.0-6.0); HEMOGLOBIN 12.2 g/dL (13.5-17.5); LYMPHOCYTES # (AUTO) 1.6 K/uL (1.0-4.8); LYMPHOCYTES % (AUTO) 16.6 % (22.0-44.0); MEAN CORPUSCULAR HEMOGLOBIN 28.6 pg (26.0-34.0); MEAN CORPUSCULAR VOLUME 87 fL (80-100); MONOCYTES % (AUTO) 10.3 % (2.0-9.0); NEUTROPHILS # (AUTO) 6.3 K/uL (1.8-7.7); NEUTROPHILS % (AUTO) 65.7 % (40.0-70.0); PLATELET COUNT (AUTO) 239 K/uL (150-450); RED BLOOD CELL COUNT(AUTO) 4.27 MIL/uL (4.50-5.90); RED CELL DISTRIBUTION WIDTH 17.1 % (11.5-14.5)
[2020-01-14 15:32] LABS: CALCIUM, TOTAL 8.5 mg/dL (8.8-10.5); CREATININE 1.76 mg/dL (0.60-1.30)
[2020-01-14 15:39] LABS: ALBUMIN 3.2 g/dL (3.4-5.0); BILIRUBIN,TOTAL 0.5 mg/dL (0.1-1.0); TOTAL PROTEIN, SERUM 7.3 g/dL (6.4-8.2)
[2020-01-14 15:43] LABS: INR 1.1 (0.9-1.1); PROTHROMBIN TIME 11.1 SEC (9.4-11.6)
[2020-01-14] MEDS ORDERED: ASPIRIN 81 MG CHEWABLE TABLET PO ONE (15:45)
[2020-01-14] MEDS ORDERED: SODIUM CHLORIDE 0.9% 500 ML IV ONE (15:45)
[2020-01-14 18:33] VITALS: BP 154/78
== END 2020-01-14 18:48 | disposition home or self-care (01) ==
LOC: EMS 14:47
DX: R07.89 Other chest pain (principal)
CPT/HCPCS: 36415; 71045; 80053; 82550; 83880; 84484; 85025; 85610; 85730; 93005; 99285; J7040

== ENCOUNTER 2020-02-06 09:06 | Emergency (ER) | payer SELFPAY ==
[~2020-02-06] VITALS: Ht 160 cm; Wt 72.7 kg
[2020-02-06] MEDS ORDERED: LIDOCAINE 5% TRANSDERMAL PATCH TD ONE (10:30)
[2020-02-06] MEDS ORDERED: ACETAMINOPHEN 500 MG TABLET PO ONE (10:30)
[2020-02-06 13:11] LABS: BASOPHILS % (AUTO) 1.1 % (0.0-2.0); EOSINOPHILS % (AUTO) 2.4 % (1.0-6.0); HEMATOCRIT 41.7 % (41-53); HEMOGLOBIN 13.7 g/dL (13.5-17.5); LYMPHOCYTES # (AUTO) 1.3 K/uL (1.0-4.8); LYMPHOCYTES % (AUTO) 14.9 % (22.0-44.0); MEAN CORPUSCULAR HEMOGLOBIN 28.7 pg (26.0-34.0); MEAN CORPUSCULAR HGB CONC 32.9 G/dL (31.0-37.0); MEAN CORPUSCULAR VOLUME 87 fL (80-100); MONOCYTES # (AUTO) 0.8 K/uL (0.1-1.0); MONOCYTES % (AUTO) 9.6 % (2.0-9.0); NEUTROPHILS # (AUTO) 6.2 K/uL (1.8-7.7); PLATELET COUNT (AUTO) 230 K/uL (150-450); RED BLOOD CELL COUNT(AUTO) 4.79 MIL/uL (4.50-5.90); RED CELL DISTRIBUTION WIDTH 17.5 % (11.5-14.5)
[2020-02-06 13:19] LABS: CREATININE 1.39 mg/dL (0.60-1.30); POTASSIUM 4.3 mmol/L (3.5-5.1)
[2020-02-06 13:24] LABS: INR 1.7 (0.9-1.1); PROTHROMBIN TIME 17.7 SEC (9.4-11.6)
[2020-02-06 13:45] LABS: ALBUMIN 3.5 g/dL (3.4-5.0); BILIRUBIN,TOTAL 0.6 mg/dL (0.1-1.0); TOTAL PROTEIN, SERUM 8.2 g/dL (6.4-8.2)
[2020-02-06 14:30] VITALS: BP 154/95
== END 2020-02-06 15:33 | disposition home or self-care (01) ==
LOC: EMS 09:07
DX: S09.90XA Unspecified injury of head, initial encounter (principal); M25.461 Effusion, right knee; M25.532 Pain in left wrist; I11.9 Hypertensive heart disease without heart failure; E78.00 Pure hypercholesterolemia, unspecified; F17.210 Nicotine dependence, cigarettes, uncomplicated; Z86.73 Personal history of transient ischemic attack (TIA), and cerebral infarction without residual deficits; Z88.0 Allergy status to penicillin; Z79.82 Long term (current) use of aspirin; W19.XXXA Unspecified fall, initial encounter; Y93.89 Activity, other specified; Y92.89 Other specified places as the place of occurrence of the external cause; Y99.8 Other external cause status
CPT/HCPCS: 70450; 72125; 93005

== ENCOUNTER 2020-02-10 10:43 | Emergency (ER) | payer MEDICAID ==
[~2020-02-10] VITALS: Ht 167.6 cm; Wt 70.5 kg
[2020-02-10] MEDS ORDERED: KETOROLAC TROMETHAMINE 30 MG/ML VIAL IM ONE (11:15)
[2020-02-10] MEDS ORDERED: LIDOCAINE/PF 1% 5 ML VIAL INJ ONE (11:45)
[2020-02-10 12:28] LABS: BASOPHILS % (AUTO) 0.5 % (0.0-2.0); EOSINOPHILS % (AUTO) 0.6 % (1.0-6.0); HEMATOCRIT 38.3 % (41-53); HEMOGLOBIN 12.7 g/dL (13.5-17.5); LYMPHOCYTES # (AUTO) 0.9 K/uL (1.0-4.8); LYMPHOCYTES % (AUTO) 7.5 % (22.0-44.0); MEAN CORPUSCULAR HEMOGLOBIN 28.7 pg (26.0-34.0); MEAN CORPUSCULAR HGB CONC 33.1 G/dL (31.0-37.0); MEAN CORPUSCULAR VOLUME 87 fL (80-100); MONOCYTES # (AUTO) 1.3 K/uL (0.1-1.0); MONOCYTES % (AUTO) 11.3 % (2.0-9.0); NEUTROPHILS # (AUTO) 9.1 K/uL (1.8-7.7); NEUTROPHILS % (AUTO) 80.1 % (40.0-70.0); PLATELET COUNT (AUTO) 238 K/uL (150-450); RED BLOOD CELL COUNT(AUTO) 4.41 MIL/uL (4.50-5.90); RED CELL DISTRIBUTION WIDTH 16.8 % (11.5-14.5)
[2020-02-10 12:38] LABS: CALCIUM, TOTAL 8.9 mg/dL (8.8-10.5); CREATININE 1.57 mg/dL (0.60-1.30); POTASSIUM 3.7 mmol/L (3.5-5.1)
[2020-02-10 12:43] LABS: ALBUMIN 3.3 g/dL (3.4-5.0); BILIRUBIN,TOTAL 1.2 mg/dL (0.1-1.0); C-REACTIVE PROTEIN QUANT 16.52 mg/dL (0.00-0.30); TOTAL PROTEIN, SERUM 8.2 g/dL (6.4-8.2)
[2020-02-10 12:47] LABS: SPECIMENTYPE,BODY FLUID SYNOVIAL
[2020-02-10] MEDS ORDERED: ACETAMINOPHEN 500 MG TABLET PO ONE (14:30)
[2020-02-10 14:40] LABS: APPEARANCE,UNSPUN,BODY FLUID CLOUDY (CLEAR)
[2020-02-10 14:41] LABS: APPEARANCE,SPUN,BODY FLUID HAZY (CLEAR); COLOR,BODY FLUID YELLOW (LT YELLOW); LYMPHOCYTES,BODY FLUID 2 %; MONOCYTES,BODY FLUID 5 %; NEUTROPHILS,BODY FLUID 93 %; TOTAL VOLUME,BODY FLUID 35 mL; WBC, BODY FLUID 15325 /cu. mm.
[2020-02-10 14:43] LABS: BASOPHILS,BODY FLUID 0 %; EOSINOPHILS,BF (ANAL) 0 %
[2020-02-10 15:24] VITALS: BP 134/86
[2020-02-10 15:52] LABS: ERYTHROCYTE SEDIMENTATION RATE 72 MM/HR (0-15)
== END 2020-02-10 15:53 | disposition home or self-care (01) ==
LOC: EMS 10:45
DX: M25.461 Effusion, right knee (principal); F17.210 Nicotine dependence, cigarettes, uncomplicated; E78.00 Pure hypercholesterolemia, unspecified; I11.9 Hypertensive heart disease without heart failure; Z88.0 Allergy status to penicillin; Z79.82 Long term (current) use of aspirin; Z79.899 Other long term (current) drug therapy
CPT/HCPCS: 20610; 36415; 73700; 80053; 85025; 85651; 86140; 87070; 87205; 89051; 89060; 96372; 99284; 99406; J1885; J2001

== ENCOUNTER 2020-08-18 11:48 | Emergency (ER) | payer MEDICAID ==
[~2020-08-18] VITALS: Ht 172.7 cm; Wt 84.1 kg
[~2020-08-18 11:48] MED LIST changes: +ALLO-45 PO; -ALLO300 PO; +AMLO-258 PO; -AMLO10TA7 PO
[2020-08-18 15:04] LABS: BASOPHILS % (AUTO) 0.7 % (0.0-2.0); EOSINOPHILS % (AUTO) 3.1 % (1.0-6.0); HEMATOCRIT 43.9 % (41-53); HEMOGLOBIN 14.3 g/dL (13.5-17.5); LYMPHOCYTES # (AUTO) 1.5 K/uL (1.0-4.8); LYMPHOCYTES % (AUTO) 15.8 % (22.0-44.0); MEAN CORPUSCULAR HEMOGLOBIN 28.7 pg (26.0-34.0); MEAN CORPUSCULAR HGB CONC 32.6 G/dL (31.0-37.0); MEAN CORPUSCULAR VOLUME 88 fL (80-100); MONOCYTES # (AUTO) 0.7 K/uL (0.1-1.0); NEUTROPHILS # (AUTO) 7.1 K/uL (1.8-7.7); NEUTROPHILS % (AUTO) 73.4 % (40.0-70.0); PLATELET COUNT (AUTO) 201 K/uL (150-450); RED BLOOD CELL COUNT(AUTO) 4.99 MIL/uL (4.50-5.90); RED CELL DISTRIBUTION WIDTH 16.1 % (11.5-14.5)
[2020-08-18 15:13] LABS: CALCIUM, TOTAL 9.3 mg/dL (8.8-10.5); CREATININE 1.54 mg/dL (0.60-1.30); POTASSIUM 4.8 mmol/L (3.5-5.1)
[2020-08-18 15:21] LABS: ALBUMIN 3.9 g/dL (3.4-5.0); BILIRUBIN,TOTAL 0.3 mg/dL (0.1-1.0); TOTAL PROTEIN, SERUM 8.6 g/dL (6.4-8.2)
[2020-08-18 16:41] LABS: APPEARANCE,URINE CLEAR (CLEAR); BILIRUBIN,URINE NEGATIVE (NEGATIVE); GLUCOSE, URINE (UA) NEGATIVE (NEGATIVE); KETONES,URINE NEGATIVE (NEGATIVE); LEUKOCYTE ESTERASE ,URINE NEGATIVE (NEGATIVE); NITRATE,URINE NEGATIVE (NEGATIVE); OCCULT BLOOD,URINE TRACE (NEGATIVE); PROTEIN,URINE POS 1+ (NEGATIVE); UROBILINOGEN,URINE 0.2 mg/dL (<=1.0)
[2020-08-18 16:51] LABS: BACTERIA,URINE Rare /HPF (None Seen); SQUAMOUS EPITHELIAL CELL,UR Few /LPF (None Seen); WBC,URINE 0-2 /HPF (0-5)
[2020-08-18 17:42] VITALS: BP 148/80
== END 2020-08-18 17:43 | disposition home or self-care (01) ==
LOC: EMS 11:52
DX: I11.9 Hypertensive heart disease without heart failure (principal); E78.00 Pure hypercholesterolemia, unspecified; F17.210 Nicotine dependence, cigarettes, uncomplicated; I10 Essential (primary) hypertension
CPT/HCPCS: 93005; 36415-L1; 36415-TC; 71045-TC

== ENCOUNTER 2020-08-23 07:48 | Emergency (ER) | payer SELFPAY ==
[~2020-08-23] VITALS: Ht 160 cm; Wt 33.1 kg
[2020-08-23] MEDS ORDERED: LIDOCAINE 1% 10 ML VIAL SQ ONE (08:30)
[2020-08-23 08:55] LABS: BASOPHILS % (AUTO) 1.2 % (0.0-2.0); EOSINOPHILS % (AUTO) 2.6 % (1.0-6.0); HEMATOCRIT 41.5 % (41-53); HEMOGLOBIN 13.8 g/dL (13.5-17.5); LYMPHOCYTES # (AUTO) 1.3 K/uL (1.0-4.8); LYMPHOCYTES % (AUTO) 12.7 % (22.0-44.0); MEAN CORPUSCULAR HEMOGLOBIN 28.9 pg (26.0-34.0); MEAN CORPUSCULAR HGB CONC 33.1 G/dL (31.0-37.0); MEAN CORPUSCULAR VOLUME 87 fL (80-100); MONOCYTES % (AUTO) 9.8 % (2.0-9.0); NEUTROPHILS # (AUTO) 7.8 K/uL (1.8-7.7); NEUTROPHILS % (AUTO) 73.7 % (40.0-70.0); PLATELET COUNT (AUTO) 195 K/uL (150-450); RED BLOOD CELL COUNT(AUTO) 4.76 MIL/uL (4.50-5.90); RED CELL DISTRIBUTION WIDTH 15.2 % (11.5-14.5)
[2020-08-23 08:59] LABS: SPECIMENTYPE,BODY FLUID SYNOVIAL
[2020-08-23 09:07] LABS: CALCIUM, TOTAL 8.8 mg/dL (8.8-10.5); CREATININE 1.46 mg/dL (0.60-1.30); POTASSIUM 4.3 mmol/L (3.5-5.1)
[2020-08-23 09:13] LABS: ALBUMIN 3.4 g/dL (3.4-5.0); BILIRUBIN,TOTAL 0.9 mg/dL (0.1-1.0); C-REACTIVE PROTEIN QUANT 7.3 mg/dL (0.00-0.30)
[2020-08-23] MEDS ORDERED: ACETAMINOPHEN 500 MG TABLET PO ONE (09:15)
[2020-08-23] MEDS ORDERED: KETOROLAC TROMETHAMINE 30 MG/ML VIAL IM ONE (09:15)
[2020-08-23 10:10] VITALS: BP 175/94
[2020-08-23 10:12] LABS: APPEARANCE,UNSPUN,BODY FLUID BLOODY (CLEAR)
[2020-08-23 10:13] LABS: APPEARANCE,SPUN,BODY FLUID BLOODY (CLEAR); BASOPHILS,BODY FLUID 0 %; COLOR,BODY FLUID RED (LT YELLOW); EOSINOPHILS,BF (ANAL) 0 %; LYMPHOCYTES,BODY FLUID 8 %; MONOCYTES,BODY FLUID 2 %; NEUTROPHILS,BODY FLUID 90 %; TOTAL VOLUME,BODY FLUID 1.5 mL; WBC, BODY FLUID 187 /cu. mm.
[2020-08-23 10:14] LABS: OTHER CELLS,BODY FLUID 0
[2020-08-23 10:38] LABS: CRYSTALS, SYNOVIAL FLUID None Seen (None Seen)
[2020-08-23 11:35] LABS: ERYTHROCYTE SEDIMENTATION RATE 55 MM/HR (0-15)
== END 2020-08-23 12:00 | disposition home or self-care (01) ==
LOC: EMS 07:48
DX: M25.521 Pain in right elbow (principal); M25.421 Effusion, right elbow; I11.9 Hypertensive heart disease without heart failure; E78.00 Pure hypercholesterolemia, unspecified; F17.210 Nicotine dependence, cigarettes, uncomplicated; Z86.73 Personal history of transient ischemic attack (TIA), and cerebral infarction without residual deficits; Z88.0 Allergy status to penicillin; Z79.82 Long term (current) use of aspirin
CPT/HCPCS: 20610; 36415; 73080; 80053; 85025; 85651; 86140; 89051; 89060; 96372; 99284; J1885; J3490; 20600

== ENCOUNTER 2020-10-28 10:33 | Emergency (ER) | payer MEDICAID ==
[~2020-10-28] VITALS: Ht 167.6 cm; Wt 79.5 kg
[~2020-10-28 10:33] MED LIST changes: -ISOS60TA4 PO; +ISOS60TA77 PO
[2020-10-28] MEDS ORDERED: MECLIZINE HCL 25 MG TABLET PO ONE (11:00)
[2020-10-28] MEDS ORDERED: ACETAMINOPHEN 500 MG TABLET PO ONE (11:00)
[2020-10-28] MEDS ORDERED: ONDANSETRON HCL 4 MG/2 ML VIAL IVP ONE (11:00)
[2020-10-28 11:22] LABS: BASOPHILS % (AUTO) 1.1 % (0.0-2.0); EOSINOPHILS % (AUTO) 0.8 % (1.0-6.0); HEMATOCRIT 45.8 % (41-53); HEMOGLOBIN 15.3 g/dL (13.5-17.5); LYMPHOCYTES % (AUTO) 10.6 % (22.0-44.0); MEAN CORPUSCULAR HEMOGLOBIN 28.8 pg (26.0-34.0); MEAN CORPUSCULAR HGB CONC 33.3 G/dL (31.0-37.0); MEAN CORPUSCULAR VOLUME 87 fL (80-100); MONOCYTES # (AUTO) 0.6 K/uL (0.1-1.0); MONOCYTES % (AUTO) 6.7 % (2.0-9.0); NEUTROPHILS # (AUTO) 7.9 K/uL (1.8-7.7); NEUTROPHILS % (AUTO) 80.8 % (40.0-70.0); PLATELET COUNT (AUTO) 219 K/uL (150-450); RED CELL DISTRIBUTION WIDTH 14.6 % (11.5-14.5)
[2020-10-28] MEDS ORDERED: NALOXONE HCL 1 MG/ML 2 ML SYG IVP ONE (11:30)
[2020-10-28 11:38] LABS: CALCIUM, TOTAL 9.6 mg/dL (8.8-10.5); CREATININE 1.74 mg/dL (0.60-1.30); POTASSIUM 4.1 mmol/L (3.5-5.1)
[2020-10-28 11:51] LABS: ALBUMIN 4.1 g/dL (3.4-5.0); BILIRUBIN,TOTAL 0.8 mg/dL (0.1-1.0); TOTAL PROTEIN, SERUM 9.3 g/dL (6.4-8.2)
[2020-10-28 14:17] VITALS: BP 157/97
== END 2020-10-28 14:18 | disposition home or self-care (01) ==
LOC: EMS 10:40
DX: S93.402A Sprain of unspecified ligament of left ankle, initial encounter (principal); S50.02XA Contusion of left elbow, initial encounter; R42 Dizziness and giddiness; I11.9 Hypertensive heart disease without heart failure; E78.00 Pure hypercholesterolemia, unspecified; F17.210 Nicotine dependence, cigarettes, uncomplicated; Z86.73 Personal history of transient ischemic attack (TIA), and cerebral infarction without residual deficits; Z88.0 Allergy status to penicillin; Z79.82 Long term (current) use of aspirin; W19.XXXA Unspecified fall, initial encounter; Y93.89 Activity, other specified; Y92.89 Other specified places as the place of occurrence of the external cause; Y99.8 Other external cause status
CPT/HCPCS: 36415; 70450; 71045; 73080; 73610; 80053; 83880; 84484; 85025; 93005; 96374; 99285; G0480; J2405